=== PATIENT | male | born 1945 | race American Indian/Alaskan Native ===

== ENCOUNTER 2019-11-02 18:18 | Inpatient (IN) | payer MEDICARE ==
[2019-11-02] MEDS ORDERED: MORPHINE 2 MG/1 ML INJ IV PRN (23:19)
[2019-11-02] MEDS ORDERED: ACETAMINOPHEN 325 MG TAB PO PRN (23:19)
[2019-11-02] MEDS ORDERED: ONDANSETRON 4 MG/2 ML INJ IV PRN (23:19)
[2019-11-02] MEDS ORDERED: MAGNESIUM HYDROXIDE (MOM) ORAL LIQD UDC PO PRN (23:19)
--- NOTE | 2019-11-02 23:40 | History and Physical Report ---
History of Present Illness Date of examination: 11/02/19 Date of admission: 11/02/19 23:15 Chief complaint: Shortness of breath for 3 months History of present illness: Patient is a 74-year-old -[place] male with known history of coronary artery disease, chronic kidney disease, hypertension, hyperlipidemia and hypothyroidism. He was transferred from [facility] to this facility for further care. He had presented at [facility] with history of shortness of breath and paroxysmal nocturnal dyspnea for about 3 months. His work-up at [facility] reveals that he was in CHF.. He was subsequently diuresed and but during the course of the diuresis his creatinine continue to increase and therefore Lasix was discontinued. Was also found to have some urinary retention and has been having nocturia was subsequently placed on a Granados catheter. Patient also has known history of cardiac arrhythmia with paroxysmal atrial fibrillation and is subsequently on anticoagulation with Eliquis. He was being managed at [facility] for CHF exacerbation, acute kidney injury, urinary retention. Past History Past Medical History: CAD, hypertension, hyperlipidemia, PVD, renal failure, other (Benign prostatic hypertrophy) Past Surgical History: appendectomy, total hip replacement (In 2003), total knee replacement (In 2003) Social history: smoking (Uses smokeless tobacco) Family history: CAD Medications and Allergies Allergies Allergy/AdvReac Type Severity Reaction Status Date / Time No Known Allergies Allergy Verified 11/02/19 19:03 Home Medications Medication Instructions Recorded Confirmed Last Taken Type Allopurinol [Zyloprim] 200 mg PO DAILY 11/02/19 11/03/19 11/02/19 History amLODIPine 10 mg PO DAILY 11/02/19 11/03/19 11/02/19 History Apixaban [Eliquis] 2.5 mg PO BID 11/03/19 11/03/19 11/02/19 History AtorvaSTATin 80 mg PO DAILY 11/03/19 11/03/19 11/02/19 History Cholecalciferol (Vitamin D3) 1,000 units PO DAILY 11/03/19 11/03/19 11/02/19 History Doxazosin [Cardura] 6 mg PO DAILY 11/03/19 11/03/19 10/31/19 History Ferrous Sulfate 325 mg PO BID 11/03/19 11/03/19 11/02/19 History Levothyroxine [Synthroid] 50 mcg PO DAILY 11/03/19 11/03/19 11/02/19 History Lisinopril [Zestril TAB] 40 mg PO DAILY 11/03/19 11/03/19 08/29/19 History Tolterodine (Nf) [Detrol LA] 4 mg PO DAILY 11/03/19 11/03/19 Unknown History carvediloL [Coreg] 25 mg PO BID 11/03/19 11/03/19 11/02/19 History Active Meds: Active Medications Acetaminophen (Tylenol) 650 mg PO Q6H PRN PRN Reason: Pain MILD(1-3)/Fever >100.5/HOBBS Magnesium Hydroxide (Milk Of Magnesia) 30 ml PO Q4H PRN PRN Reason: Constipation Morphine Sulfate (Morphine) 2 mg IV Q4H PRN PRN Reason: Pain, Moderate (4-6) Ondansetron HCl (Zofran) 4 mg IV Q8H PRN PRN Reason: Nausea And Vomiting Sodium Chloride (Sodium Chloride Flush Syringe 10 Ml) 10 ml IV BID [facility]IA ELENA Sodium Chloride (Sodium Chloride Flush Syringe 10 Ml) 10 ml IV PRN PRN PRN Reason: LINE FLUSH Review of Systems Respiratory: shortness of breath Genitourinary Male: nocturia Exam - Constitutional General appearance: Present: no acute distress, well-nourished - EENT Eyes: Present: PERRL, EOM intact ENT: hearing intact, clear oral mucosa, dentition normal - Neck Neck: Present: supple, normal ROM - Respiratory Respiratory effort: normal Respiratory: bilateral: CTA - Cardiovascular Rhythm: regular Heart Sounds: Present: S1 & S2, systolic murmur (Soft systolic murmur) - Extremities Extremities: no ischemia, pulses intact, pulses symmetrical, No edema Peripheral Pulses: within normal limits - Abdominal General gastrointestinal: Present: soft, non-tender, non-distended Male genitourinary: Present: normal (Granados catheter in place) - Integumentary Integumentary: Present: clear, warm, dry - Musculoskeletal Musculoskeletal: strength equal bilaterally - Psychiatric Psychiatric: appropriate mood/affect, intact judgment & insight - Neurologic Neurologic: CNII-XII intact, moves all extremities Results - Labs CBC & Chem 7: 11/03/19 04:45 11/03/19 04:45 Assessment and Plan - Patient Problems (1) CHF (congestive heart failure) Current Visit: Yes Status: Acute Plan to address problem: Patient has been diuresed. We will request recent echocardiogram report. We will schedule for cardiology follow-up (2) Urinary retention Current Visit: Yes Status: Acute Plan to address problem: Patient has been placed on a Granados catheter will monitor input and output. (3) CAD (coronary artery disease) Current Visit: Yes Status: Acute Plan to address problem: Stable (4) CKD (chronic kidney disease) Current Visit: Yes Status: Acute Plan to address problem: Requests nephrology follow-up. (5) HTN (hypertension) Current Visit: Yes Status: Acute Plan to address problem: Blood pressure stable and will continue routine home medications. (6) Full code status Current Visit: Yes Status: Acute
[2019-11-03 05:05] LABS: Hematocrit 29.6 % (35.5-45.6); Hemoglobin 9.5 gm/dl (11.8-15.2); Mean Corpuscular HGB Conc 32 % (32-34); Mean Corpuscular Volume 91 fl (84-94); Platelet Count 223 K/mm3 (140-440); Red Blood Count 3.25 M/mm3 (3.65-5.03); Red Cell Distribution Width 17.8 % (13.2-15.2)
[2019-11-03 05:14] LABS: INR 1.19 (0.87-1.13); Partial Thromboplastin Time 26.8 Sec. (24.2-36.6)
[2019-11-03 05:25] LABS: Calcium 8.5 mg/dL (8.4-10.2)
[2019-11-03] MEDS ORDERED: SODIUM POLYSTYRENE 15 GM/60 ML ORAL LIQD PO ONE ×2 (06:27→16:30)
[2019-11-03 06:30] LABS: Basophils % (Manual) 0 % (0.0-1.8); Total Cells Counted 100
[2019-11-03 06:31] LABS: Anisocytosis 1+; Platelet Estimate Consistent w Auto
[2019-11-03] MEDS: LEVOTHYROXINE 50 MCG TAB PO SCH (08:00)
--- NOTE | 2019-11-03 09:24 | Consultation ---
History of Present Illness Consult date: 11/03/19 Requesting physician: BASIA STATON History of present illness: This is a 74-year old male with multiple medical problems who transferred from [facility] for further management acute hypoxic respiratory failure secondary to CHF exacerbation, EF 30% by echo 10/24/19. Patient is resting in bed and reports his breathing is better. He denies chest pain. There is no lower extremity edema. He was treated with supplemental oxygen, diuretics and admitted to [facility] ICU at [place]. he has been admitted to [facility] ICU and I have been consulted fro critical care management Patient was seen and examined. Vitals, labs, medications, chart reviewed.. Review of records shows a cardiac history of paroxysmal atrial fibrillation, on low dose Eliquis due to renal failure. He has a history of mitral valve repair and tricuspid valve repair in 2013. There is no report of coronary bypass at the time of his surgery. Patient also has a history of sick sinus syndrome and has a pacemaker implant. A recent interrogation reports the pacemaker battery is nearing end of life. REVIEW OF SYSTEMS General appearance: no acute distress HEENT: Positive: PERRL Neck: Positive: trachea midline Cardiac: Positive: Reg Rate and Rhythm Lungs: Positive: Decreased Breath Sounds Neuro: Positive: Grossly Intact Extremities: Absent: edema Past History Past Medical History: CAD, hypertension, hyperlipidemia, PVD, renal failure, other (Benign prostatic hypertrophy) Past Surgical History: appendectomy, total hip replacement (In 2003), total knee replacement (In 2003) Social history: smoking (Uses smokeless tobacco) Family history: CAD Medications and Allergies Allergies Allergy/AdvReac Type Severity Reaction Status Date / Time No Known Allergies Allergy Verified 11/02/19 19:03 Home Medications Medication Instructions Recorded Confirmed Last Taken Type allopurinoL [Zyloprim] 200 mg PO DAILY 11/02/19 11/03/19 11/02/19 History amLODIPine 10 mg PO DAILY 11/02/19 11/03/19 11/02/19 History Apixaban [Eliquis] 2.5 mg PO BID 11/03/19 11/03/19 11/02/19 History AtorvaSTATin 80 mg PO DAILY 11/03/19 11/03/19 11/02/19 History Cholecalciferol (Vitamin D3) 1,000 units PO DAILY 11/03/19 11/03/19 11/02/19 History Doxazosin [Cardura] 6 mg PO DAILY 11/03/19 11/03/19 10/31/19 History Ferrous Sulfate 325 mg PO BID 11/03/19 11/03/19 11/02/19 History Levothyroxine [Synthroid] 50 mcg PO DAILY 11/03/19 11/03/19 11/02/19 History Tolterodine (Nf) [Detrol LA] 4 mg PO DAILY 11/03/19 11/03/19 Unknown History carvediloL [Coreg] 25 mg PO BID 11/03/19 11/03/19 11/02/19 History Active Meds: Active Medications Acetaminophen (Tylenol) 650 mg PO Q6H PRN PRN Reason: Pain MILD(1-3)/Fever >100.5/HOBBS Amlodipine Besylate (Amlodipine) 10 mg PO DAILY [facility] Apixaban (Eliquis) 2.5 mg PO BID [facility]; Protocol Carvedilol (Coreg) 25 mg PO BID [facility] Doxazosin Mesylate (Cardura) 6 mg PO DAILY [facility] Levothyroxine Sodium (Synthroid) 50 mcg PO DAILY@0600 [facility] Magnesium Hydroxide (Milk Of Magnesia) 30 ml PO Q4H PRN PRN Reason: Constipation Morphine Sulfate (Morphine) 2 mg IV Q4H PRN PRN Reason: Pain, Moderate (4-6) Ondansetron HCl (Zofran) 4 mg IV Q8H PRN PRN Reason: Nausea And Vomiting Sodium Chloride (Sodium Chloride Flush Syringe 10 Ml) 10 ml IV BID [facility] Sodium Chloride (Sodium Chloride Flush Syringe 10 Ml) 10 ml IV PRN PRN PRN Reason: LINE FLUSH Physical Examination Vital signs: Vital Signs Resp 22 11/02/19 22:30 Constitutional: no acute distress, other (elderly looking AAF, normocephalic with mildly increased resp effort at rest) Eyes: non-icteric ENT: oropharynx moist Neck: supple, no lymphadenopathy, no JVD Effort: mildly labored Ascultation: Bilateral: rhonchi (scant) Percussion: Bilateral: not dull Cardiovascular: regular rate and rhythm Gastrointestinal: normoactive bowel sounds, soft, non-tender, non-distended Integumentary: normal Extremities: no cyanosis, no edema, pulses normal, no ischemia or petechiae Neurologic: normal mental status, non-focal exam (grossly), pupils equal and round, CN II-XII normal Psychiatric: mood appropriate, affect normal Results - Laboratory Findings CBC and BMP: 11/05/19 05:14 11/07/19 05:56 PT/INR, D-dimer PT 15.0 Sec. (12.2-14.9) H 11/03/19 04:45 INR 1.19 (0.87-1.13) H 11/03/19 04:45 Abnormal lab findings: Abnormal Labs 11/03/19 11/03/19 11/03/19 04:45 04:45 04:45 WBC 4.4 L RBC 3.25 L Hgb 9.5 L Hct 29.6 L RDW 17.8 H Monocytes % (Manual) 10.0 H Eosinophils % (Manual) 5.0 H Lymphocytes # (Manual) 0.7 L PT 15.0 H INR 1.19 H Potassium 5.5 H Carbon Dioxide 21 L BUN 63 H Creatinine 3.4 H - Diagnostic Findings Chest x-ray: image reviewed Assessment and Plan Acute Hypoxic Respiratory Failure Hyperkalemia LIANA-probably 2/2 vasomotor nephropathy, overdiuresis, on background of BPH Acute CHF exacerbation (EF 30%) CAD CKD HTN Anemia - wean supplemental oxygen for O2 sat's > 90% -prn BIPAP - continue bronchodilators prn -Increase activity -Avoid nephrotoxins, adjust all medications for GFR/CrCL - continue anticoagulation for A-fib -Medical management of hyperkalemia - PT/OT as tolerated - GI & VTE prophylaxis - Flu & pneumovax per protocol - continue other care per attending / other consultants -Stable for transfer to telemetry floor
[2019-11-03] MEDS ORDERED: NON-FORMULARY EACH (Amlodipine 10 MG) PO SCH (10:00)
[2019-11-03] MEDS: APIXABAN 5 MG TAB PO SCH ×2 (10:38→22:14)
[2019-11-03] MEDS: carvediloL 25 MG TAB PO SCH ×2 (10:39→22:12)
[2019-11-03] MEDS: amLODIPine 10 MG TAB PO SCH (10:41)
[2019-11-03] MEDS: DOXAZOSIN 4 MG TAB PO SCH (10:41)
--- NOTE | 2019-11-03 11:10 | Progress Note ---
Assessment and Plan / Hyperkalemia - 6.3 today will give kayexalate, insulin/d50 - nephrology consulted / CHF (congestive heart failure)rEF 30% appears compensated now, consulted cardiology - will follow recommendation / Urinary retention Patient has been placed on a Granados catheter will monitor input and output. / CAD (coronary artery disease) Stable, cont medical mx /CKD (chronic kidney disease) monitor renal function, consult nephrology / HTN (hypertension) Blood pressure stable and will continue routine home medications. will hold ACEI for now /Leukopenia, cont to monitor /Anemia of CD, monitor h/h /Dvt px, heparin Brief History: This is a 74-year old male with h/o history of paroxysmal atrial fibrillation, on low dose Eliquis due to renal failure, history of mitral valve repair and tricuspid valve repair in 2013, sick sinus syndrome and has a pacemaker implant who transferred from [facility] for further management of CHF exacerbation, EF 30% by echo 10/24/19. Subjective Date of service: 11/03/19 Interval history: Patient seen and examined denies chest pain, breathing improved K level noted elevated transfer from ICU to tele Objective - Constitutional Vitals: Vital Signs - 12hr 11/02/19 11/02/19 11/02/19 23:20 23:30 23:33 Temperature Pulse Rate 68 70 Pulse Rate [ 70 From Monitor] Respiratory 11 L 20 20 Rate Blood Pressure 123/68 120/61 O2 Sat by Pulse 100 99 100 Oximetry 11/02/19 11/02/19 11/03/19 23:40 23:50 00:00 Temperature Pulse Rate 70 70 70 Pulse Rate [ From Monitor] Respiratory 21 22 24 Rate Blood Pressure 120/61 117/66 119/70 O2 Sat by Pulse 100 99 100 Oximetry 11/03/19 11/03/19 11/03/19 00:10 00:20 00:30 Temperature Pulse Rate 70 70 66 Pulse Rate [ From Monitor] Respiratory 21 21 20 Rate Blood Pressure 119/70 121/80 116/86 O2 Sat by Pulse 99 98 98 Oximetry 11/03/19 11/03/19 11/03/19 00:31 00:40 00:50 Temperature 97.7 F Pulse Rate 70 70 Pulse Rate [ From Monitor] Respiratory 17 18 Rate Blood Pressure 116/86 115/85 O2 Sat by Pulse 100 99 Oximetry 11/03/19 11/03/1919 01:00 01:10 01:20 Temperature Pulse Rate 70 70 70 Pulse Rate [ From Monitor] Respiratory 18 18 12 Rate Blood Pressure 126/71 126/71 121/69 O2 Sat by Pulse 100 100 100 Oximetry 11/03/19 11/03/19 11/03/19 01:22 01:30 01:33 Temperature Pulse Rate 69 70 Pulse Rate [ 70 From Monitor] Respiratory 17 16 20 Rate Blood Pressure 121/69 130/71 O2 Sat by Pulse 100 100 100 Oximetry 11/03/19 11/03/19 11/03/19 01:40 01:50 02:00 Temperature Pulse Rate 70 70 70 Pulse Rate [ From Monitor] Respiratory 17 18 16 Rate Blood Pressure 130/71 126/70 140/74 O2 Sat by Pulse 100 100 100 Oximetry 11/03/19 11/03/19 11/03/19 02:10 02:20 02:30 Temperature Pulse Rate 70 70 70 Pulse Rate [ From Monitor] Respiratory 17 13 17 Rate Blood Pressure 140/74 141/79 135/74 O2 Sat by Pulse 100 100 100 Oximetry 11/03/19 11/03/19 11/03/19 02:40 02:50 03:00 Temperature Pulse Rate 70 70 70 Pulse Rate [ From Monitor] Respiratory 17 18 18 Rate Blood Pressure 141/79 132/76 132/76 O2 Sat by Pulse 100 100 100 Oximetry 11/03/19 11/03/19 11/03/19 03:10 03:20 03:30 Temperature Pulse Rate 70 70 70 Pulse Rate [ From Monitor] Respiratory 20 19 16 Rate Blood Pressure 132/76 140/75 128/71 O2 Sat by Pulse 100 100 100 Oximetry 11/03/19 11/03/19 11/03/19 03:33 03:40 03:50 Temperature Pulse Rate 70 70 Pulse Rate [ 70 From Monitor] Respiratory 20 15 22 Rate Blood Pressure 140/75 136/78 O2 Sat by Pulse 100 100 100 Oximetry 11/03/19 11/03/19 11/03/19 04:00 04:10 04:20 Temperature Pulse Rate 70 70 70 Pulse Rate [ From Monitor] Respiratory 19 16 16 Rate Blood Pressure 139/75 136/78 126/72 O2 Sat by Pulse 100 100 100 Oximetry 11/03/19 11/03/19 11/03/19 04:30 04:40 04:48 Temperature Pulse Rate 70 70 70 Pulse Rate [ From Monitor] Respiratory 16 16 14 Rate Blood Pressure 119/67 119/67 134/84 O2 Sat by Pulse 100 100 100 Oximetry 11/03/19 11/03/19 11/03/19 04:50 05:00 05:10 Temperature Pulse Rate 70 70 70 Pulse Rate [ From Monitor] Respiratory 13 15 16 Rate Blood Pressure 134/84 135/74 134/84 O2 Sat by Pulse 100 100 100 Oximetry 11/03/19 11/03/19 11/03/19 05:20 05:30 05:33 Temperature Pulse Rate 70 70 Pulse Rate [ 70 From Monitor] Respiratory 17 19 20 Rate Blood Pressure 133/78 146/80 O2 Sat by Pulse 100 100 100 Oximetry 11/03/19 11/03/19 11/03/19 05:40 05:50 06:00 Temperature Pulse Rate 70 70 70 Pulse Rate [ From Monitor] Respiratory 14 16 15 Rate Blood Pressure 146/80 148/82 141/77 O2 Sat by Pulse 100 100 100 Oximetry 11/03/19 11/03/19 11/03/19 06:10 06:20 06:30 Temperature Pulse Rate 70 70 70 Pulse Rate [ From Monitor] Respiratory 16 15 15 Rate Blood Pressure 146/80 130/69 129/70 O2 Sat by Pulse 100 100 100 Oximetry 11/03/19 11/03/19 11/03/19 06:40 06:50 07:00 Temperature Pulse Rate 70 70 70 Pulse Rate [ 70 From Monitor] Respiratory 15 14 15 Rate Blood Pressure 129/70 128/71 127/69 O2 Sat by Pulse 100 100 100 Oximetry 11/03/19 11/03/19 11/03/19 07:10 07:20 07:30 Temperature Pulse Rate 70 70 70 Pulse Rate [ From Monitor] Respiratory 16 16 16 Rate Blood Pressure 127/69 148/82 146/76 O2 Sat by Pulse 100 100 100 Oximetry 11/03/19 11/03/19 11/03/19 07:40 08:00 08:30 Temperature 97.9 F Pulse Rate 70 70 70 Pulse Rate [ From Monitor] Respiratory 18 16 14 Rate Blood Pressure 146/76 144/94 129/77 O2 Sat by Pulse 100 100 100 Oximetry 11/03/19 11/03/19 11/03/19 09:00 09:30 10:00 Temperature Pulse Rate 70 70 70 Pulse Rate [ From Monitor] Respiratory 15 17 21 Rate Blood Pressure 136/74 131/70 126/71 O2 Sat by Pulse 100 100 100 Oximetry 11/03/19 11/03/19 10:39 10:41 Temperature Pulse Rate 70 70 Pulse Rate [ From Monitor] Respiratory Rate Blood Pressure 137/80 137/80 O2 Sat by Pulse Oximetry General appearance: Present: no acute distress, well-nourished - EENT Eyes: PERRL, EOM intact ENT: hearing intact, clear oral mucosa Ears: bilateral: normal - Neck Neck: supple, normal ROM - Respiratory Respiratory effort: normal Respiratory: bilateral: CTA - Cardiovascular Rhythm: regular Heart Sounds: Present: S1 & S2. Absent: gallop, rub Extremities: pulses intact, No edema, normal color, Full ROM - Gastrointestinal General gastrointestinal: Present: soft, non-tender, non-distended, normal bowel sounds - Integumentary Integumentary: clear, warm, dry - Musculoskeletal Musculoskeletal: 1, strength equal bilaterally - Neurologic Neurologic: moves all extremities - Psychiatric Psychiatric: memory intact, appropriate mood/affect, intact judgment & insight - Labs CBC & Chem 7: 11/03/19 04:45 11/04/19 16:09 Labs: Abnormal lab results 11/03/19 11/03/19 11/03/19 Range/Units 04:45 04:45 04:45 WBC 4.4 L (4.5-11.0) K/mm3 RBC 3.25 L (3.65-5.03) M/mm3 Hgb 9.5 L (11.8-15.2) gm/dl Hct 29.6 L (35.5-45.6) % RDW 17.8 H (13.2-15.2) % Monocytes % (Manual) 10.0 H (0.0-7.3) % Eosinophils % (Manual) 5.0 H (0.0-4.3) % Lymphocytes # (Manual) 0.7 L (1.2-5.4) K/mm3 PT 15.0 H (12.2-14.9) Sec. INR 1.19 H (0.87-1.13) Potassium 5.5 H (3.6-5.0) mmol/L Carbon Dioxide 21 L (22-30) mmol/L BUN 63 H (9-20) mg/dL Creatinine 3.4 H (0.8-1.5) mg/dL
--- NOTE | 2019-11-03 12:09 | Consultation ---
<MAYA JUÁREZ - Last Filed: 11/03/19 12:21> History of Present Illness Consult date: 11/03/19 Consult reason: congestive heart failure History of present illness: This is a 74-year old male with multiple medical problems who transferred from [facility] for further management of CHF exacerbation, EF 30% by echo 10/24/19. Patient is resting in bed and reports his breathing is better. He denies chest pain. There is no lower extremity edema. There is no ECG available but telemetry strips shows stable sinus rhythm, Review of records shows a cardiac history of paroxysmal atrial fibrillation, on low dose Eliquis due to renal failure. He has a history of mitral valve repair and tricuspid valve repair in 2013. There is no report of coronary bypass at the time of his surgery. Patient also has a history of sick sinus syndrome and has a pacemaker implant. A recent interrogation reports the pacemaker battery is nearing end of life. Past History Past Medical History: CAD, hypertension, hyperlipidemia, PVD, renal failure, other (Benign prostatic hypertrophy) Past Surgical History: appendectomy, total hip replacement (In 2003), total knee replacement (In 2003) Social history: smoking (Uses smokeless tobacco) Family history: CAD Medications and Allergies Allergies Allergy/AdvReac Type Severity Reaction Status Date / Time No Known Allergies Allergy Verified 11/02/19 19:03 Home Medications Medication Instructions Recorded Confirmed Last Taken Type Allopurinol [Zyloprim] 200 mg PO DAILY 11/02/19 11/03/19 11/02/19 History amLODIPine 10 mg PO DAILY 11/02/19 11/03/19 11/02/19 History Apixaban [Eliquis] 2.5 mg PO BID 11/03/19 11/03/19 11/02/19 History AtorvaSTATin 80 mg PO DAILY 11/03/19 11/03/19 11/02/19 History Cholecalciferol (Vitamin D3) 1,000 units PO DAILY 11/03/19 11/03/19 11/02/19 History Doxazosin [Cardura] 6 mg PO DAILY 11/03/19 11/03/19 10/31/19 History Ferrous Sulfate 325 mg PO BID 11/03/19 11/03/19 11/02/19 History Levothyroxine [Synthroid] 50 mcg PO DAILY 11/03/19 11/03/19 11/02/19 History Tolterodine (Nf) [Detrol LA] 4 mg PO DAILY 11/03/19 11/03/19 Unknown History carvediloL [Coreg] 25 mg PO BID 11/03/19 11/03/19 11/02/19 History Active Meds: Active Medications Acetaminophen (Tylenol) 650 mg PO Q6H PRN PRN Reason: Pain MILD(1-3)/Fever >100.5/HOBBS Amlodipine Besylate (Amlodipine) 10 mg PO DAILY [facility] Last Admin: 11/03/19 10:41 Dose: 10 mg Documented by: Apixaban (Eliquis) 2.5 mg PO BID [facility]; Protocol Last Admin: 11/03/19 10:38 Dose: 2.5 mg Documented by: Carvedilol (Coreg) 25 mg PO BID [facility] Last Admin: 11/03/19 10:39 Dose: 25 mg Documented by: Doxazosin Mesylate (Cardura) 6 mg PO DAILY [facility] Last Admin: 11/03/19 10:41 Dose: 2 mg Documented by: Levothyroxine Sodium (Synthroid) 50 mcg PO DAILY@0600 [facility] Last Admin: 11/03/19 08:00 Dose: 50 mcg Documented by: Magnesium Hydroxide (Milk Of Magnesia) 30 ml PO Q4H PRN PRN Reason: Constipation Morphine Sulfate (Morphine) 2 mg IV Q4H PRN PRN Reason: Pain, Moderate (4-6) Ondansetron HCl (Zofran) 4 mg IV Q8H PRN PRN Reason: Nausea And Vomiting Sodium Chloride (Sodium Chloride Flush Syringe 10 Ml) 10 ml IV BID [facility] Sodium Chloride (Sodium Chloride Flush Syringe 10 Ml) 10 ml IV PRN PRN PRN Reason: LINE FLUSH Physical Examination Vital Signs Resp 22 11/02/19 22:30 General appearance: no acute distress HEENT: Positive: PERRL Neck: Positive: trachea midline Cardiac: Positive: Reg Rate and Rhythm Lungs: Positive: Decreased Breath Sounds Neuro: Positive: Grossly Intact Extremities: Absent: edema Results 11/03/19 04:45 11/03/19 04:45 Coagulation 11/03/19 Range/Units 04:45 PT 15.0 H (12.2-14.9) Sec. INR 1.19 H (0.87-1.13) APTT 26.8 (24.2-36.6) Sec. CBC 11/03/19 Range/Units 04:45 WBC 4.4 L (4.5-11.0) K/mm3 RBC 3.25 L (3.65-5.03) M/mm3 Hgb 9.5 L (11.8-15.2) gm/dl Hct 29.6 L (35.5-45.6) % Plt Count 223 (140-440) K/mm3 Comprehensive Metabolic Panel 11/03/19 Range/Units 04:45 Sodium 139 (137-145) mmol/L Potassium 5.5 H (3.6-5.0) mmol/L Chloride 106.7 (98-107) mmol/L Carbon Dioxide 21 L (22-30) mmol/L BUN 63 H (9-20) mg/dL Creatinine 3.4 H (0.8-1.5) mg/dL Glucose 93 (75-100) mg/dL Calcium 8.5 (8.4-10.2) mg/dL Assessment and Plan Acute CHF exacerbation, systolic EF 30% by recent echo at [place] Hx of MV and TV repair in 2013 no report of coronary bypass at the time of surgery Hx of SSS s/p PPM repair recent interrogation reports battery is nearing end of life Hx of paroxysmal Afib on low dose eliquis for oral anticoagulation on beta blockers for suppression Renal failure Hx of Thyroidectomy Hypertension Recommendations: Obtain 12 lead ECG. Continue medical therapy for systolic heart failure as tolerated. Diuretics as per management of nephrology due to renal disease. <SYLWIA BRAND - Last Filed: 11/10/19 10:06> Physical Examination Vital Signs Resp 22 11/02/19 22:30 Results 11/05/19 05:14 11/07/19 05:56 Assessment and Plan I have seen and evaluated the patient myself, and agree with the assessment and plan.
--- NOTE | 2019-11-03 14:30 | Consultation ---
History of Present Illness - Reason for Consult Consult date: 11/03/19 acute renal failure, hyperkalemia - History of Present Illness the patient is a 74 YO AAM with known history of HTN, HLD, CAD, CKD, Diastolic CHF, BPH, PVD, hypothyroidism and s/p MV repair who was transferred from [facility] to this facility for further care. He had presented to [facility] with Acute decompensated CHF and A.fib. He was also found to have urinary retention and was subsequently Durham catheter was placed. Currently admitted at this facility for treatment of CHF exacerbation, Acute kidney injury and urinary retention. Patient is a very poor historian and the information was mostly obtained from the chart. Nephrology was consulted for evaluation and treatment of LIANA and hyperkalemia. Date Creatinine 10/04/2008 1.9 06/23/2012 2.3 12/08/2012 2.5 10/31/2019 3.8 11/01/2019 4.1 11/02/2019 3.8 Past History Past Medical History: atrial fib, CAD, heart failure, hypertension, hyperlipidemia, PVD, renal failure, other (BPH) Past Surgical History: appendectomy, total hip replacement (In 2003), total knee replacement (In 2003) Social history: smoking (Uses smokeless tobacco) Family history: CAD Medications and Allergies Allergies Allergy/AdvReac Type Severity Reaction Status Date / Time No Known Allergies Allergy Verified 11/02/19 19:03 Home Medications Medication Instructions Recorded Confirmed Last Taken Type Allopurinol [Zyloprim] 200 mg PO DAILY 11/02/19 11/03/19 11/02/19 History amLODIPine 10 mg PO DAILY 11/02/19 11/03/19 11/02/19 History Apixaban [Eliquis] 2.5 mg PO BID 11/03/19 11/03/19 11/02/19 History AtorvaSTATin 80 mg PO DAILY 11/03/19 11/03/19 11/02/19 History Cholecalciferol (Vitamin D3) 1,000 units PO DAILY 11/03/19 11/03/19 11/02/19 History Doxazosin [Cardura] 6 mg PO DAILY 11/03/19 11/03/19 10/31/19 History Ferrous Sulfate 325 mg PO BID 11/03/19 11/03/19 11/02/19 History Levothyroxine [Synthroid] 50 mcg PO DAILY 11/03/19 11/03/19 11/02/19 History Lisinopril [Zestril TAB] 40 mg PO DAILY 11/03/19 11/03/19 08/29/19 History Tolterodine (Nf) [Detrol LA] 4 mg PO DAILY 11/03/19 11/03/19 Unknown History carvediloL [Coreg] 25 mg PO BID 11/03/19 11/03/19 11/02/19 History Active Meds: Active Medications Acetaminophen (Tylenol) 650 mg PO Q6H PRN PRN Reason: Pain MILD(1-3)/Fever >100.5/HOBBS Amlodipine Besylate (Amlodipine) 10 mg PO DAILY [facility] Last Admin: 11/03/19 10:41 Dose: 10 mg Documented by: Apixaban (Eliquis) 2.5 mg PO BID [facility]; Protocol Last Admin: 11/03/19 10:38 Dose: 2.5 mg Documented by: Carvedilol (Coreg) 25 mg PO BID [facility] Last Admin: 11/03/19 10:39 Dose: 25 mg Documented by: Doxazosin Mesylate (Cardura) 6 mg PO DAILY [facility] Last Admin: 11/03/19 10:41 Dose: 2 mg Documented by: Levothyroxine Sodium (Synthroid) 50 mcg PO DAILY@0600 [facility] Last Admin: 11/03/19 08:00 Dose: 50 mcg Documented by: Magnesium Hydroxide (Milk Of Magnesia) 30 ml PO Q4H PRN PRN Reason: Constipation Morphine Sulfate (Morphine) 2 mg IV Q4H PRN PRN Reason: Pain, Moderate (4-6) Ondansetron HCl (Zofran) 4 mg IV Q8H PRN PRN Reason: Nausea And Vomiting Sodium Chloride (Sodium Chloride Flush Syringe 10 Ml) 10 ml IV BID [facility] Sodium Chloride (Sodium Chloride Flush Syringe 10 Ml) 10 ml IV PRN PRN PRN Reason: LINE FLUSH Review of Systems ROS unobtainable: due to mental status Exam - Vital Signs Vital signs: Vital Signs Resp 22 11/02/19 22:30 - General Appearance General appearance: well-developed, well-nourished, appears stated age, other (not in distress) EENT: ATNC, PERRL, hearing intact, vision intact Neck: Present: neck supple, trachea midline Respiratory: Clear to Ascultation Heart: normal heart rate, S1S2, no murmurs Gastrointestinal: Present: normoactive bowel sounds, other (: durham catheter). Absent: tenderness, distended Integumentary: no rash, warm and dry Neurologic: no focal deficit, no asterixis, confused, disoriented Musculoskeletal: Present: other (no edema) Results - Lab Results 11/03/19 04:45 11/03/19 04:45 Most recent lab results Calcium 8.5 mg/dL (8.4-10.2) 11/03/19 04:45 Assessment and Plan 1. Acute kidney injury vs CKD stage 4: Likely CKD stage 4 in the setting of ischemic nephropathy. Urine studies and Renal US ordered. Monitor renal function. Renal prognosis is guarded. Avoid nephrotoxic agents. Meds dosage based on GFR. 2. FEN: Metabolic acidosis, monitor. Hyperkalemia, follow K level. Monitor lytes. 3. Acute decompensated CHF. 4. Paroxysmal A.fib. 5. Urinary retention: H/o BPH. Durham catheter. 6. Hypertension: Monitor BP. 7. Normochromic anemia: POA.
[2019-11-03 15:43] LABS: Calcium 8.8 mg/dL (8.4-10.2)
[2019-11-03] MEDS ORDERED: ALBUTEROL 2.5 MG/3 ML NEBU IH ONE (16:30)
[2019-11-03] MEDS ORDERED: DEXTROSE 50% IN WATER (25GM) 50 ML SYRINGE IV ONE (16:30)
[2019-11-03] MEDS ORDERED: INSULIN REGULAR, HUMAN 100 UNITS/1 ML IV ONE (16:30)
--- NOTE | 2019-11-03 20:51 | Ultrasound Report ---
ULTRASOUND RENAL INDICATION: Renal failure.. COMPARISON: No relevant prior imaging study available. FINDINGS: RIGHT KIDNEY: Size: 9.3 cm. Echogenicity: Moderately increased. Cortical thickness: 1.1 cm. Hydronephrosis: None. Cyst or mass: Small 9 x 6 x 9 mm cyst in the upper pole.. Stones: 1.4 cm. LEFT KIDNEY: Size: 9.6 cm. Echogenicity: Moderately increased. Cortical thickness: Normal. Hydronephrosis: None. Cyst or mass: 1.7 x 1.6 x 2 cm cyst in the lower pole with an adjacent smaller cyst seen as well.. S tones: None. Urinary Bladder: Empty with Granados catheter in place.. Free Fluid: None. Additional Findings: None. IMPRESSION 1. Medical renal disease with small renal cysts. No stones or obstruction.. Signer Name: Jason Noriega MD Signed: 11/03/2019 8:47 PM Workstation Name: [id number]
[2019-11-03 20:54] LABS: Calcium 8.9 mg/dL (8.4-10.2)
[2019-11-04 04:26] LABS: Bacteria,Urine 1+ /HPF (Negative); Bilirubin,Urine NEG (Negative); Blood,Urine MOD (Negative); Color,Urine Yellow (Yellow); Urobilinogen,Urine < 2.0 mg/dL (<2.0)
[2019-11-04 05:10] LABS: Creatinine,Urine 122.4 mg/dL (0.1-20.0)
[2019-11-04] MEDS: LEVOTHYROXINE 50 MCG TAB PO SCH (05:55)
[2019-11-04 06:59] LABS: BUN/Creatinine Ratio TNR; Blood Urea Nitrogen TNR mg/dL (9-20); Calcium TNR mg/dL (8.4-10.2)
[2019-11-04 07:00] LABS: Alanine Aminotransferase TNR units/L (7-56); Albumin TNR g/dL (3.9-5); Hemolysis Index TNR
--- NOTE | 2019-11-04 08:13 | Progress Note ---
Assessment and Plan 1. Acute kidney injury vs CKD stage 4: Likely CKD stage 4 in the setting of ischemic nephropathy. Renal US negative for hydronephrosis. Monitor renal function. Renal prognosis is guarded. Avoid nephrotoxic agents. Meds dosage based on GFR. 2. FEN: Metabolic acidosis, monitor. Hyperkalemia, kayexalate ordered. Monitor lytes. 3. Acute decompensated CHF. 4. Paroxysmal A.fib. 5. Urinary retention: H/o BPH. Durham catheter. 6. Hypertension: Monitor BP. 7. Normochromic anemia: POA. Examination: General appearance: well-developed, well-nourished, appears stated age, not in distress HEENT: ATNC, AJIT, hearing intact, vision intact Neck: neck supple, trachea midline Respiratory: Clear to Ascultation Heart: normal heart rate, S1S2, no murmurs Gastrointestinal: normoactive bowel sounds, not tender, not distended Integumentary: no rash, warm and dry Neurologic: no focal deficit, no asterixis, confused, disoriented : durham catheter Ext: no edema Subjective Date of service: 11/04/19 Interval history: Patient was seen and examined at the bedside. Objective - Vital Signs Vital signs: Vital Signs - 12hr 11/03/19 11/03/19 11/03/19 20:22 20:23 22:00 Temperature 97.9 F Pulse Rate 71 70 Pulse Rate [ 70 From Monitor] Pulse Rate [ 71 Left Radial] Pulse Rate [ 71 Right Radial] Respiratory 18 18 Rate Blood Pressure 123/72 O2 Sat by Pulse 99 99 Oximetry 11/03/19 11/03/19 11/03/19 22:08 22:12 23:25 Temperature Pulse Rate 70 70 Pulse Rate [ From Monitor] Pulse Rate [ Left Radial] Pulse Rate [ Right Radial] Respiratory 20 Rate Blood Pressure 123/72 136/83 O2 Sat by Pulse 98 100 Oximetry 11/03/19 11/04/19 11/04/19 23:31 05:31 05:33 Temperature 97.5 F L 97.7 F Pulse Rate 68 Pulse Rate [ From Monitor] Pulse Rate [ Left Radial] Pulse Rate [ Right Radial] Respiratory 20 Rate Blood Pressure 126/76 O2 Sat by Pulse 100 Oximetry 11/04/19 08:05 Temperature 98.2 F Pulse Rate 69 Pulse Rate [ From Monitor] Pulse Rate [ Left Radial] Pulse Rate [ Right Radial] Respiratory 18 Rate Blood Pressure 124/73 O2 Sat by Pulse 100 Oximetry - Lab 11/05/19 05:14 11/05/19 05:14 Most recent lab results Calcium TNR 11/04/19 04:39 Urine Creatinine 122.4 mg/dL (0.1-20.0) H 11/04/19 04:00 Urine Sodium 41 mmol/L 11/04/19 04:00 Medications & Allergies - Medications Allergies/Adverse Reactions: Allergies No Known Allergies Allergy (Verified 11/02/19 19:03) Home Medications: Home Medications Medication Instructions Recorded Confirmed Last Taken Type Allopurinol [Zyloprim] 200 mg PO DAILY 11/02/19 11/03/19 11/02/19 History amLODIPine 10 mg PO DAILY 11/02/19 11/03/19 11/02/19 History Apixaban [Eliquis] 2.5 mg PO BID 11/03/19 11/03/19 11/02/19 History AtorvaSTATin 80 mg PO DAILY 11/03/19 11/03/19 11/02/19 History Cholecalciferol (Vitamin D3) 1,000 units PO DAILY 11/03/19 11/03/19 11/02/19 History Doxazosin [Cardura] 6 mg PO DAILY 11/03/19 11/03/19 10/31/19 History Ferrous Sulfate 325 mg PO BID 11/03/19 11/03/19 11/02/19 History Levothyroxine [Synthroid] 50 mcg PO DAILY 11/03/19 11/03/19 11/02/19 History Lisinopril [Zestril TAB] 40 mg PO DAILY 11/03/19 11/03/19 08/29/19 History Tolterodine (Nf) [Detrol LA] 4 mg PO DAILY 11/03/19 11/03/19 Unknown History carvediloL [Coreg] 25 mg PO BID 11/03/19 11/03/19 11/02/19 History Active Medications: Generic Name Dose Route Start Last Admin Trade Name Freq PRN Reason Stop Dose Admin Acetaminophen 650 mg 11/02/19 23:19 Tylenol PO Q6H PRN Pain MILD(1-3)/Fever >100.5/HOBBS Amlodipine Besylate 10 mg 11/03/19 10:00 11/03/19 10:41 Amlodipine PO 10 mg DAILY [facility] ELENA Administration Apixaban 2.5 mg 11/03/19 10:00 11/03/19 22:14 Eliquis PO 2.5 mg BID MARIA ELENA Administration Protocol Carvedilol 25 mg 11/03/19 10:00 11/03/19 22:12 Coreg PO 25 mg BID MARIA ELENA Administration Doxazosin Mesylate 6 mg 11/03/19 10:00 11/03/19 10:41 Cardura PO 2 mg DAILY MARIA ELENA Administration Levothyroxine Sodium 50 mcg 11/03/19 07:00 11/04/19 05:55 Synthroid PO 50 mcg DAILY@0600 [facility] Administration Magnesium Hydroxide 30 ml 11/02/19 23:19 Milk Of Magnesia PO Q4H PRN Constipation Morphine Sulfate 2 mg 11/02/19 23:19 Morphine IV Q4H PRN Pain, Moderate (4-6) Ondansetron HCl 4 mg 11/02/19 23:19 Zofran IV Q8H PRN Nausea And Vomiting Sodium Chloride 10 ml 11/03/19 10:00 11/03/19 22:13 Sodium Chloride Flush Syringe 10 Ml IV 10 ml BID [facility]IA ELENA Administration Sodium Chloride 10 ml 11/02/19 23:19 Sodium Chloride Flush Syringe 10 Ml IV PRN PRN LINE FLUSH
[2019-11-04 08:32] LABS: Calcium 8.5 mg/dL (8.4-10.2)
[2019-11-04] MEDS: DOXAZOSIN 4 MG TAB PO SCH (09:25)
[2019-11-04] MEDS: amLODIPine 10 MG TAB PO SCH (09:25)
[2019-11-04] MEDS: carvediloL 25 MG TAB PO SCH ×2 (09:26→21:44)
[2019-11-04] MEDS: APIXABAN 5 MG TAB PO SCH ×2 (09:27→21:41)
[2019-11-04] MEDS ORDERED: SODIUM POLYSTYRENE 15 GM/60 ML ORAL LIQD PO SCH (09:51)
[2019-11-04] MEDS ORDERED: NON-FORMULARY EACH (Ferrous Sulfate 325 MG) PO SCH (10:00)
[2019-11-04] MEDS ORDERED: CHOLECALCIFEROL 1000 UNIT PO SCH (10:00)
[2019-11-04] MEDS ORDERED: NON-FORMULARY EACH (Atorvastatin 80 MG) PO SCH (10:00)
[2019-11-04] MEDS: CHOLECALCIFEROL (VIT D3) 1000 UNIT TAB PO SCH (10:29)
[2019-11-04] MEDS: FERROUS SULFATE 325 MG TAB PO SCH ×2 (10:29→21:41)
[2019-11-04] MEDS: allopurinoL 100 MG TAB PO SCH (10:29)
--- NOTE | 2019-11-04 12:15 | Progress Note ---
Assessment and Plan Acute CHF exacerbation, systolic EF 30% by recent echo at [facility] Hx of MV and TV repair in 2013 no report of coronary bypass at the time of surgery Hx of SSS s/p PPM repair recent interrogation reports battery is nearing end of life Hx of paroxysmal Afib on low dose eliquis for oral anticoagulation on beta blockers for suppression Renal failure Hx of Thyroidectomy Hypertension Recommendations: Obtain ischemic cardiac records from [facility]. Continue medical therapy for systolic heart failure and paroxysmal atrial fibrillation as tolerated. Subjective Date of service: 11/04/19 Interval history: Patient is resting in bed comfortably. He reports his breathing better. He denies chest pain. Family member is at the bedside. Objective Vital Signs Temp Pulse Pulse Pulse Pulse Resp BP 11/04/19 12:08 98.3 F 66 18 123/72 11/04/19 10:00 11/04/19 09:26 70 113/61 11/04/19 09:25 70 113/61 11/04/19 09:23 70 113/61 11/04/19 08:05 98.2 F 69 18 124/73 11/04/19 05:33 97.7 F 11/04/19 05:31 68 20 126/76 11/03/19 23:31 97.5 F L 11/03/19 23:25 70 20 136/83 11/03/19 22:12 70 123/72 11/03/19 22:08 11/03/19 22:00 70 70 71 71 18 11/03/19 20:23 97.9 F 11/03/19 20:22 71 18 123/72 11/03/19 16:13 97.6 F 71 18 106/73 11/03/19 13:11 97.6 F 70 18 121/76 Pulse Ox 11/04/19 12:08 99 11/04/19 10:00 100 11/04/19 09:26 11/04/19 09:25 11/04/19 09:23 100 11/04/19 08:05 100 11/04/19 05:33 11/04/19 05:31 100 11/03/19 23:31 11/03/19 23:25 100 11/03/19 22:12 11/03/19 22:08 98 11/03/19 22:00 99 11/03/19 20:23 11/03/19 20:22 99 11/03/19 16:13 100 11/03/19 13:11 100 - Physical Examination General: No Apparent Distress HEENT: Positive: PERRL Neck: Positive: trachea midline Cardiac: Positive: Other (paced) Lungs: Positive: Decreased Breath Sounds Neuro: Positive: Grossly Intact - Labs and Meds Cardiac Enzymes 11/04/19 Range/Units 04:39 AST TNR Comprehensive Metabolic Panel 11/03/19 11/03/19 11/04/19 Range/Units 14:55 20:07 04:39 Sodium 138 140 TNR (137-145) mmol/L Potassium 6.3 H* 5.3 H TNR (3.6-5.0) mmol/L Chloride 104.1 111.0 H TNR (98-107) mmol/L Carbon Dioxide 23 19 L TNR (22-30) mmol/L BUN 62 H 59 H TNR (9-20) mg/dL Creatinine 3.1 H 3.0 H TNR (0.8-1.5) mg/dL Glucose 117 H 40 L TNR (75-100) mg/dL Calcium 8.8 8.9 TNR (8.4-10.2) mg/dL AST TNR ALT TNR Alkaline Phosphatase TNR Total Protein TNR Albumin TNR 11/04/19 Range/Units 07:13 Sodium 135 L (137-145) mmol/L Potassium 5.5 H (3.6-5.0) mmol/L Chloride 103.1 (98-107) mmol/L Carbon Dioxide 20 L (22-30) mmol/L BUN 64 H (9-20) mg/dL Creatinine 2.6 H (0.8-1.5) mg/dL Glucose 73 L (75-100) mg/dL Calcium 8.5 (8.4-10.2) mg/dL AST ALT Alkaline Phosphatase Total Protein Albumin
--- NOTE | 2019-11-04 13:41 | Progress Note ---
Assessment and Plan Acute Hypoxemic Respiratory Failure Hyperkalemia Acute CHF exacerbation (EF 30%) Atrial fib Urinary retention CAD CKD HTN Anemia - continue supplemental oxygen as needed to keep O2 sat's > 90% - continue bronchodilators with pulmonary hygiene per RT - continue anticoagulation for A-fib - PT/OT as tolerated - mobility protocols for pressure ulcer prophylaxis - GI & VTE prophylaxis - Flu & pneumovax addressed per protocol - continue other care per attending / other consultants ... re-evaluate in am & prn Subjective Date of service: 11/04/19 Principal diagnosis: Acute CHF exacerbation; Acute Hypoxemic Resp Failure Interval history: Patient is seen today for: Acute CHF exacerbation; Acute Hypoxemic Resp Failure Seen and examined at bedside; 24hour events reviewed; nursing and respiratory care staff consulted; no adverse overnight events reported to me; resting peacefully in bed; feels better; remains on supplemental oxygen which is new; denies acute chest pains or palpitations. Objective Vital Signs - 12hr 11/04/19 11/04/19 11/04/19 05:31 05:33 08:05 Temperature 97.7 F 98.2 F Pulse Rate 68 69 Respiratory 20 18 Rate Blood Pressure 126/76 124/73 O2 Sat by Pulse 100 100 Oximetry 11/04/19 11/04/19 11/04/19 09:23 09:25 09:26 Temperature Pulse Rate 70 70 70 Respiratory Rate Blood Pressure 113/61 113/61 113/61 O2 Sat by Pulse 100 Oximetry 11/04/19 11/04/19 10:00 12:08 Temperature 98.3 F Pulse Rate 70 66 Respiratory 18 Rate Blood Pressure 123/72 O2 Sat by Pulse 100 99 Oximetry Constitutional: no acute distress, other (elderly looking AAF, normocephalic with mildly increased resp effort at rest) Eyes: non-icteric ENT: oropharynx moist Neck: supple, no lymphadenopathy, no JVD Effort: mildly labored Ascultation: Bilateral: rhonchi (scant) Percussion: Bilateral: not dull Cardiovascular: regular rate and rhythm Gastrointestinal: normoactive bowel sounds, soft, non-tender, non-distended Integumentary: normal Extremities: no cyanosis, no edema, pulses normal, no ischemia or petechiae Neurologic: normal mental status, non-focal exam (grossly), pupils equal and round, CN II-XII normal Psychiatric: mood appropriate, affect normal CBC and BMP: 11/05/19 05:14 11/07/19 05:56 ABG, PT/INR, D-dimer: PT/INR, D-dimer PT 15.0 Sec. (12.2-14.9) H 11/03/19 04:45 INR 1.19 (0.87-1.13) H 11/03/19 04:45 Abnormal lab findings: Abnormal Labs 11/03/19 11/03/19 11/03/19 04:45 04:45 04:45 WBC 4.4 L RBC 3.25 L Hgb 9.5 L Hct 29.6 L RDW 17.8 H Monocytes % (Manual) 10.0 H Eosinophils % (Manual) 5.0 H Lymphocytes # (Manual) 0.7 L PT 15.0 H INR 1.19 H Sodium Potassium 5.5 H Chloride Carbon Dioxide 21 L BUN 63 H Creatinine 3.4 H Glucose Urine WBC (Auto) Urine Creatinine 11/03/19 11/03/19 11/04/19 14:55 20:07 04:00 WBC RBC Hgb Hct RDW Monocytes % (Manual) Eosinophils % (Manual) Lymphocytes # (Manual) PT INR Sodium Potassium 6.3 H* 5.3 H Chloride 111.0 H Carbon Dioxide 19 L BUN 62 H 59 H Creatinine 3.1 H 3.0 H Glucose 117 H 40 L Urine WBC (Auto) 7.0 H Urine Creatinine 11/04/19 11/04/19 04:00 07:13 WBC RBC Hgb Hct RDW Monocytes % (Manual) Eosinophils % (Manual) Lymphocytes # (Manual) PT INR Sodium 135 L Potassium 5.5 H Chloride Carbon Dioxide 20 L BUN 64 H Creatinine 2.6 H Glucose 73 L Urine WBC (Auto) Urine Creatinine 122.4 H Allied health notes reviewed: nursing
--- NOTE | 2019-11-04 17:29 | Progress Note ---
Assessment and Plan / Hyperkalemia - trended down to 5.9 from 6.3 today will give additional kayexalate, insulin/d50, calcium gluconate, sodium bicarbonate - nephrology consulted / CHF (congestive heart failure)rEF 30% appears compensated now, consulted cardiology - will follow recommendation /Atrial fib, on eliquis, rate controlled / Urinary retention Patient has been placed on a Granados catheter will monitor input and output. / CAD (coronary artery disease) Stable, cont medical mx /CKD (chronic kidney disease) monitor renal function, consult nephrology / HTN (hypertension) Blood pressure stable and will continue routine home medications. will hold ACEI for now /Leukopenia, cont to monitor /Anemia of CD, monitor h/h /Dvt px, heparin Brief History: This is a 74-year old male with h/o history of paroxysmal atrial fibrillation, on low dose Eliquis due to renal failure, history of mitral valve repair and tricuspid valve repair in 2013, sick sinus syndrome and has a pacemaker implant who transferred from [facility] for further management of CHF exacerbation, EF 30% by echo 10/24/19. Physical exam: General appearance: Present: no acute distress, well-nourished - EENT Eyes: PERRL, EOM intact ENT: hearing intact, clear oral mucosa Ears: bilateral: normal - Neck Neck: supple, normal ROM - Respiratory Respiratory effort: normal Respiratory: bilateral: CTA - Cardiovascular Rhythm: regular Heart Sounds: Present: S1 & S2. Absent: gallop, rub Extremities: pulses intact, No edema, normal color, Full ROM - Gastrointestinal General gastrointestinal: Present: soft, non-tender, non-distended, normal bowel sounds - Integumentary Integumentary: clear, warm, dry - Musculoskeletal Musculoskeletal: 1, strength equal bilaterally - Neurologic Neurologic: moves all extremities - Psychiatric Psychiatric: memory intact, appropriate mood/affect, intact judgment & insight Subjective Date of service: 11/04/19 Principal diagnosis: Acute CHF exacerbation; Acute Hypoxemic Resp Failure Interval history: Patient seen and examined denies chest pain, breathing improved K level noted still elevated Objective - Constitutional Vitals: Vital Signs - 12hr 11/04/19 11/04/19 11/04/19 05:31 05:33 08:05 Temperature 97.7 F 98.2 F Pulse Rate 68 69 Pulse Rate [ Apical] Pulse Rate [ Left Dorsalis Pedis] Pulse Rate [ Left Radial] Pulse Rate [ Right Dorsalis Pedis] Pulse Rate [ Right Radial] Respiratory 20 18 Rate Blood Pressure 126/76 124/73 O2 Sat by Pulse 100 100 Oximetry 11/04/19 11/04/19 11/04/19 09:23 09:25 09:26 Temperature Pulse Rate 70 70 70 Pulse Rate [ Apical] Pulse Rate [ Left Dorsalis Pedis] Pulse Rate [ Left Radial] Pulse Rate [ Right Dorsalis Pedis] Pulse Rate [ Right Radial] Respiratory Rate Blood Pressure 113/61 113/61 113/61 O2 Sat by Pulse 100 Oximetry 11/04/19 11/04/19 11/04/19 10:00 12:00 12:08 Temperature 98.3 F Pulse Rate 70 71 66 Pulse Rate [ 70 Apical] Pulse Rate [ 70 Left Dorsalis Pedis] Pulse Rate [ 70 Left Radial] Pulse Rate [ 70 Right Dorsalis Pedis] Pulse Rate [ 70 Right Radial] Respiratory 22 18 Rate Blood Pressure 123/72 O2 Sat by Pulse 98 99 Oximetry 11/04/19 17:09 Temperature 98.0 F Pulse Rate 68 Pulse Rate [ Apical] Pulse Rate [ Left Dorsalis Pedis] Pulse Rate [ Left Radial] Pulse Rate [ Right Dorsalis Pedis] Pulse Rate [ Right Radial] Respiratory 18 Rate Blood Pressure 107/68 O2 Sat by Pulse 99 Oximetry - Labs CBC & Chem 7: 11/05/19 05:14 11/05/19 05:14 Labs: Abnormal lab results 11/03/19 11/04/19 11/04/19 Range/Units 20:07 04:00 04:00 Sodium (137-145) mmol/L Potassium 5.3 H (3.6-5.0) mmol/L Chloride 111.0 H (98-107) mmol/L Carbon Dioxide 19 L (22-30) mmol/L BUN 59 H (9-20) mg/dL Creatinine 3.0 H (0.8-1.5) mg/dL Glucose 40 L (75-100) mg/dL Urine WBC (Auto) 7.0 H (0.0-6.0) /HPF Urine Creatinine 122.4 H (0.1-20.0) mg/dL 11/04/19 11/04/19 Range/Units 07:13 16:09 Sodium 135 L (137-145) mmol/L Potassium 5.5 H 5.7 H (3.6-5.0) mmol/L Chloride (98-107) mmol/L Carbon Dioxide 20 L (22-30) mmol/L BUN 64 H (9-20) mg/dL Creatinine 2.6 H (0.8-1.5) mg/dL Glucose 73 L (75-100) mg/dL Urine WBC (Auto) (0.0-6.0) /HPF Urine Creatinine (0.1-20.0) mg/dL
[2019-11-04] MEDS ORDERED: INSULIN REGULAR, HUMAN 100 UNITS/1 ML IV ONE (18:20)
[2019-11-04] MEDS ORDERED: SODIUM POLYSTYRENE 15 GM/60 ML ORAL LIQD PO ONE (18:20)
[2019-11-04] MEDS ORDERED: DEXTROSE 50% IN WATER (25GM) 50 ML VIAL IV ONE (18:20)
[2019-11-05] MEDS: LEVOTHYROXINE 50 MCG TAB PO SCH (05:31)
[2019-11-05 05:57] LABS: Hematocrit 28.6 % (35.5-45.6); Hemoglobin 9.2 gm/dl (11.8-15.2); Mean Corpuscular HGB Conc 32 % (32-34); Mean Corpuscular Volume 92 fl (84-94); Platelet Count 215 K/mm3 (140-440); Red Blood Count 3.11 M/mm3 (3.65-5.03); Red Cell Distribution Width 17.6 % (13.2-15.2)
[2019-11-05 06:01] LABS: Calcium 8.5 mg/dL (8.4-10.2)
[2019-11-05 06:48] LABS: Basophils % (Manual) 0 % (0.0-1.8); Total Cells Counted 100
[2019-11-05 06:49] LABS: Anisocytosis 1+; Platelet Estimate Consistent w Auto; Poikilocytosis 1+
--- NOTE | 2019-11-05 09:45 | Progress Note ---
Assessment and Plan 1. Acute kidney injury vs CKD stage 4: Likely CKD stage 4 in the setting of ischemic nephropathy. Renal US negative for hydronephrosis. Renal function is mostly stable. Monitor renal function. Renal prognosis is guarded. Avoid nephrotoxic agents. Meds dosage based on GFR. 2. FEN: Metabolic acidosis, monitor. Hyperkalemia, kayexalate ordered. Monitor lytes. 3. Acute decompensated CHF. 4. Paroxysmal A.fib. 5. Urinary retention: H/o BPH. Durham catheter. 6. Hypertension: Monitor BP. 7. Normochromic anemia: POA. Examination: General appearance: well-developed, well-nourished, appears stated age, not in distress HEENT: ATNC, AJIT, hearing intact, vision intact Neck: neck supple, trachea midline Respiratory: Clear to Ascultation Heart: normal heart rate, S1S2, no murmurs Gastrointestinal: normoactive bowel sounds, not tender, not distended Integumentary: no rash, warm and dry Neurologic: no focal deficit, no asterixis, confused, disoriented : durham catheter Ext: no edema Subjective Date of service: 11/05/19 Principal diagnosis: Acute CHF exacerbation; Acute Hypoxemic Resp Failure Interval history: Patient was seen and examined at the bedside. Objective - Vital Signs Vital signs: Vital Signs - 12hr 11/04/19 11/04/19 11/05/19 22:00 23:42 00:54 Temperature Pulse Rate 82 72 Pulse Rate [ 80 From Monitor] Respiratory 20 18 Rate Blood Pressure O2 Sat by Pulse 98 97 98 Oximetry 11/05/19 11/05/19 11/05/19 01:06 01:07 04:55 Temperature 98.6 F Pulse Rate 65 65 Pulse Rate [ From Monitor] Respiratory 18 18 Rate Blood Pressure 108/66 109/67 O2 Sat by Pulse 98 100 Oximetry 11/05/19 04:57 Temperature 98.4 F Pulse Rate Pulse Rate [ From Monitor] Respiratory Rate Blood Pressure O2 Sat by Pulse Oximetry - Lab 11/05/19 05:14 11/06/19 13:59 Most recent lab results Calcium 8.5 mg/dL (8.4-10.2) 11/05/19 05:14 Magnesium 2.20 mg/dL (1.7-2.3) 11/05/19 05:14 Urine Creatinine 122.4 mg/dL (0.1-20.0) H 11/04/19 04:00 Urine Sodium 41 mmol/L 11/04/19 04:00 Medications & Allergies - Medications Allergies/Adverse Reactions: Allergies No Known Allergies Allergy (Verified 11/02/19 19:03) Home Medications: Home Medications Medication Instructions Recorded Confirmed Last Taken Type Allopurinol [Zyloprim] 200 mg PO DAILY 11/02/19 11/03/19 11/02/19 History amLODIPine 10 mg PO DAILY 11/02/19 11/03/19 11/02/19 History Apixaban [Eliquis] 2.5 mg PO BID 11/03/19 11/03/19 11/02/19 History AtorvaSTATin 80 mg PO DAILY 11/03/19 11/03/19 11/02/19 History Cholecalciferol (Vitamin D3) 1,000 units PO DAILY 11/03/19 11/03/19 11/02/19 History Doxazosin [Cardura] 6 mg PO DAILY 11/03/19 11/03/19 10/31/19 History Ferrous Sulfate 325 mg PO BID 11/03/19 11/03/19 11/02/19 History Levothyroxine [Synthroid] 50 mcg PO DAILY 11/03/19 11/03/19 11/02/19 History Lisinopril [Zestril TAB] 40 mg PO DAILY 11/03/19 11/03/19 08/29/19 History Tolterodine (Nf) [Detrol LA] 4 mg PO DAILY 11/03/19 11/03/19 Unknown History carvediloL [Coreg] 25 mg PO BID 11/03/19 11/03/19 11/02/19 History Active Medications: Generic Name Dose Route Start Last Admin Trade Name Freq PRN Reason Stop Dose Admin Acetaminophen 650 mg 11/02/19 23:19 Tylenol PO Q6H PRN Pain MILD(1-3)/Fever >100.5/HOBBS Allopurinol 200 mg 11/04/19 10:00 11/04/19 10:29 Zyloprim PO 200 mg DAILY MARIA ELENA Administration Amlodipine Besylate 10 mg 11/03/19 10:00 11/04/19 09:25 Amlodipine PO 10 mg DAILY MARIA ELENA Administration Apixaban 2.5 mg 11/03/19 10:00 11/04/19 21:41 Eliquis PO 2.5 mg BID MARIA ELENA Administration Protocol Atorvastatin Calcium 80 mg 11/04/19 22:00 11/04/19 21:41 Lipitor PO 80 mg QHS MARIA ELENA Administration Carvedilol 25 mg 11/03/19 10:00 11/04/19 21:44 Coreg PO 25 mg BID MARIA ELENA Administration Cholecalciferol 1,000 unit 11/04/19 11:00 11/04/19 10:29 Vitamin D3 PO 1,000 unit DAILY MARIA ELENA Administration Doxazosin Mesylate 6 mg 11/03/19 10:00 11/04/19 09:25 Cardura PO 6 mg DAILY MARIA ELENA Administration Ferrous Sulfate 325 mg 11/04/19 11:00 11/04/19 21:41 Feosol PO 325 mg BID MARIA ELENA Administration Levothyroxine Sodium 50 mcg 11/03/19 07:00 11/05/19 05:31 Synthroid PO 50 mcg DAILY@0600 [facility] Administration Magnesium Hydroxide 30 ml 11/02/19 23:19 Milk Of Magnesia PO Q4H PRN Constipation Morphine Sulfate 2 mg 11/02/19 23:19 Morphine IV Q4H PRN Pain, Moderate (4-6) Ondansetron HCl 4 mg 11/02/19 23:19 Zofran IV Q8H PRN Nausea And Vomiting Sodium Chloride 10 ml 11/03/19 10:00 11/04/19 21:45 Sodium Chloride Flush Syringe 10 Ml IV 10 ml BID MARIA ELENA Administration Sodium Chloride 10 ml 11/02/19 23:19 Sodium Chloride Flush Syringe 10 Ml IV PRN PRN LINE FLUSH
[2019-11-05] MEDS: FERROUS SULFATE 325 MG TAB PO SCH ×2 (10:43→22:10)
[2019-11-05] MEDS: CHOLECALCIFEROL (VIT D3) 1000 UNIT TAB PO SCH (10:43)
[2019-11-05] MEDS: DOXAZOSIN 4 MG TAB PO SCH (10:43)
[2019-11-05] MEDS: allopurinoL 100 MG TAB PO SCH (10:43)
[2019-11-05] MEDS: APIXABAN 5 MG TAB PO SCH ×2 (10:44→22:11)
[2019-11-05] MEDS: amLODIPine 10 MG TAB PO SCH (10:46)
[2019-11-05] MEDS: carvediloL 25 MG TAB PO SCH ×2 (10:47→22:10)
[2019-11-05] MEDS: SODIUM POLYSTYRENE 15 GM/60 ML ORAL LIQD PO SCH ×2 (11:01→17:43)
--- NOTE | 2019-11-05 11:25 | Progress Note ---
Assessment and Plan Acute CHF exacerbation, systolic EF 30% by recent echo at [place] Hx of Nonischemic cardiomyopathy [facility] 2009: no significant CAD Hx of MV and TV repair in 2013 no report of coronary bypass at the time of surgery Hx of SSS s/p DC PPM ([facility]) recent interrogation reports battery is nearing end of life Hx of paroxysmal Afib on low dose eliquis for oral anticoagulation on beta blockers for suppression Renal failure Hx of Thyroidectomy Hypertension Recommend: Continue medical therapy for systolic heart failure and paroxysmal atrial fibrillation as tolerated. Subjective Date of service: 11/05/19 Principal diagnosis: Acute CHF exacerbation; Acute Hypoxemic Resp Failure Interval history: Patient reports his breathing is better. Objective Vital Signs Temp Pulse Pulse Resp BP Pulse Ox 11/05/19 10:47 74 106/62 11/05/19 10:46 74 106/62 11/05/19 10:43 74 106/62 11/05/19 10:00 78 11/05/19 04:57 98.4 F 11/05/19 04:55 65 18 109/67 100 11/05/19 01:07 98.6 F 11/05/19 01:06 65 18 108/66 98 11/05/19 00:54 72 18 98 11/04/19 23:42 97 11/04/19 22:00 82 80 20 98 11/04/19 21:44 70 114/59 11/04/19 19:41 98.7 F 63 24 114/59 100 11/04/19 17:09 98.0 F 68 18 107/68 99 11/04/19 12:08 98.3 F 66 18 123/72 99 11/04/19 12:00 71 - Physical Examination General: No Apparent Distress HEENT: Positive: PERRL Neck: Positive: trachea midline Neuro: Positive: Grossly Intact Extremities: Absent: edema - Labs and Meds CBC 11/05/19 Range/Units 05:14 WBC 3.9 L (4.5-11.0) K/mm3 RBC 3.11 L (3.65-5.03) M/mm3 Hgb 9.2 L (11.8-15.2) gm/dl Hct 28.6 L (35.5-45.6) % Plt Count 215 (140-440) K/mm3 Lymph # Clinical Writer [place] # Clinical Writer Eos # Clinical Writer Baso # Clinical Writer Comprehensive Metabolic Panel 11/04/19 11/05/19 Range/Units 16:09 05:14 Sodium 138 (137-145) mmol/L Potassium 5.7 H 5.6 H (3.6-5.0) mmol/L Chloride 107.7 H (98-107) mmol/L Carbon Dioxide 21 L (22-30) mmol/L BUN 59 H (9-20) mg/dL Creatinine 3.1 H (0.8-1.5) mg/dL Glucose 91 (75-100) mg/dL Calcium 8.5 (8.4-10.2) mg/dL
--- NOTE | 2019-11-05 16:14 | Progress Note ---
Assessment and Plan / Hyperkalemia - trended down to 5.6 Was upto 6.3 s/p kayexalate, insulin/d50, calcium gluconate, sodium bicarbonate - nephrology consulted will give additional dose of kayexalate / CHF (congestive heart failure)rEF 30% appears compensated now, consulted cardiology - will follow recommendation /Atrial fib, on eliquis, rate controlled / Urinary retention Patient has been placed on a Granados catheter will monitor input and output. / CAD (coronary artery disease) Stable, cont medical mx /CKD (chronic kidney disease) monitor renal function, consult nephrology / HTN (hypertension) Blood pressure stable and will continue routine home medications. will hold ACEI for now /Leukopenia, cont to monitor /Anemia of CD, monitor h/h /Dvt px, heparin Brief History: This is a 74-year old male with h/o history of paroxysmal atrial fibrillation, on low dose Eliquis due to renal failure, history of mitral valve repair and tricuspid valve repair in 2013, sick sinus syndrome and has a pacemaker implant who transferred from [facility] for further management of CHF exacerbation, EF 30% by echo 10/24/19. Physical exam: General appearance: Present: no acute distress, well-nourished - EENT Eyes: PERRL, EOM intact ENT: hearing intact, clear oral mucosa Ears: bilateral: normal - Neck Neck: supple, normal ROM - Respiratory Respiratory effort: normal Respiratory: bilateral: CTA - Cardiovascular Rhythm: regular Heart Sounds: Present: S1 & S2. Absent: gallop, rub Extremities: pulses intact, No edema, normal color, Full ROM - Gastrointestinal General gastrointestinal: Present: soft, non-tender, non-distended, normal bowel sounds - Integumentary Integumentary: clear, warm, dry - Musculoskeletal Musculoskeletal: 1, strength equal bilaterally - Neurologic Neurologic: moves all extremities - Psychiatric Psychiatric: memory intact, appropriate mood/affect, intact judgment & insight Subjective Date of service: 11/05/19 Principal diagnosis: Acute CHF exacerbation; Acute Hypoxemic Resp Failure Interval history: Patient seen and examined denies chest pain, breathing improved K level noted still elevated Objective - Constitutional Vitals: Vital Signs - 12hr 11/05/19 11/05/19 11/05/19 04:55 04:57 10:00 Temperature 98.4 F Pulse Rate 65 78 Respiratory 18 Rate Blood Pressure 109/67 Blood Pressure [Right] O2 Sat by Pulse 100 Oximetry 11/05/19 11/05/19 11/05/19 10:43 10:46 10:47 Temperature Pulse Rate 74 74 74 Respiratory Rate Blood Pressure 106/62 106/62 106/62 Blood Pressure [Right] O2 Sat by Pulse Oximetry 11/05/19 12:09 Temperature 98.2 F Pulse Rate 66 Respiratory 18 Rate Blood Pressure Blood Pressure 120/70 [Right] O2 Sat by Pulse 97 Oximetry - Labs CBC & Chem 7: 11/05/19 05:14 11/06/19 05:14 Labs: Abnormal lab results 11/04/19 11/04/19 11/05/19 Range/Units 16:09 19:02 05:14 WBC (4.5-11.0) K/mm3 RBC (3.65-5.03) M/mm3 Hgb (11.8-15.2) gm/dl Hct (35.5-45.6) % RDW (13.2-15.2) % Monocytes % (Manual) (0.0-7.3) % Lymphocytes # (Manual) (1.2-5.4) K/mm3 Potassium 5.7 H 5.6 H (3.6-5.0) mmol/L Chloride 107.7 H (98-107) mmol/L Carbon Dioxide 21 L (22-30) mmol/L BUN 59 H (9-20) mg/dL Creatinine 3.1 H (0.8-1.5) mg/dL POC Glucose 108 H (70-105) 11/05/19 Range/Units 05:14 WBC 3.9 L (4.5-11.0) K/mm3 RBC 3.11 L (3.65-5.03) M/mm3 Hgb 9.2 L (11.8-15.2) gm/dl Hct 28.6 L (35.5-45.6) % RDW 17.6 H (13.2-15.2) % Monocytes % (Manual) 14.0 H (0.0-7.3) % Lymphocytes # (Manual) 0.9 L (1.2-5.4) K/mm3 Potassium (3.6-5.0) mmol/L Chloride (98-107) mmol/L Carbon Dioxide (22-30) mmol/L BUN (9-20) mg/dL Creatinine (0.8-1.5) mg/dL POC Glucose (70-105)
[2019-11-06] MEDS: LEVOTHYROXINE 50 MCG TAB PO SCH (05:33)
[2019-11-06 06:05] LABS: Calcium 8.4 mg/dL (8.4-10.2)
[2019-11-06] MEDS: APIXABAN 5 MG TAB PO SCH ×2 (09:30→22:02)
[2019-11-06] MEDS: DOXAZOSIN 4 MG TAB PO SCH (09:30)
[2019-11-06] MEDS: allopurinoL 100 MG TAB PO SCH (09:30)
[2019-11-06] MEDS: CHOLECALCIFEROL (VIT D3) 1000 UNIT TAB PO SCH (09:30)
[2019-11-06] MEDS: FERROUS SULFATE 325 MG TAB PO SCH ×2 (09:30→22:02)
[2019-11-06] MEDS: amLODIPine 10 MG TAB PO SCH (09:31)
[2019-11-06] MEDS: carvediloL 25 MG TAB PO SCH ×2 (09:31→22:03)
[2019-11-06] MEDS ORDERED: DEXTROSE 50% IN WATER (25GM) 50 ML VIAL IV ONE (10:07)
[2019-11-06] MEDS ORDERED: SODIUM BICARB 8.4% 50 MEQ/50 ML SYRINGE IV ONE (10:07)
[2019-11-06] MEDS ORDERED: INSULIN REGULAR, HUMAN 100 UNITS/1 ML IV ONE (10:07)
--- NOTE | 2019-11-06 10:09 | Progress Note ---
Assessment and Plan 1. Chronic combined systolic and diastolic heart failure 2. Dilated nonischemic cardiomyopathy 3. Status post mitral and tricuspid valve repair. 4. Presence of permanent pacemaker battery approaching HERNAN 5. Paroxysmal atrial fibrillation 6. Essential hypertension 7. Chronic kidney disease stage III 8. Chronic atrial fibrillation with a controlled ventricular response 9. Nonsustained ventricular tachycardia Plan. Patient is currently hemodynamically stable we'll continue present medication and management. Family is concerned about battery of pacemaker. They would like the battery changed on this admission Subjective Date of service: 11/06/19 Principal diagnosis: Acute CHF exacerbation; Acute Hypoxemic Resp Failure Interval history: No cardiac symptoms Objective Vital Signs Temp Pulse Pulse Resp BP BP Pulse Ox 11/06/19 09:31 72 137/68 11/06/19 09:30 72 137/68 11/06/19 08:25 98.5 F 72 18 137/68 99 11/06/19 05:06 98.3 F 53 L 22 136/79 97 11/05/19 23:35 98.9 F 70 18 130/76 99 11/05/19 22:51 98 11/05/19 22:10 73 118/74 11/05/19 22:00 71 11/05/19 20:46 70 20 100 11/05/19 19:40 20 11/05/19 19:29 98.2 F 68 20 118/74 97 11/05/19 17:09 72 141/78 97 11/05/19 12:09 98.2 F 66 18 120/70 97 11/05/19 10:47 74 106/62 11/05/19 10:46 74 106/62 11/05/19 10:43 74 106/62 - Physical Examination General: No Apparent Distress HEENT: Positive: PERRL Neck: Positive: trachea midline. Negative: JVD/HJR Cardiac: Positive: Regular Rate, S1/S2, PMI, Dilated, Laterally Displaced. Negative: S3, S4 Lungs: Positive: clear to auscultation, No Wheeze, Rales, Rhonchi. Negative: Rales, Wheezes Neuro: Positive: Grossly Intact Abdomen: Positive: Unremarkable, Soft, Active Bowel Sounds Extremities: Absent: edema - Labs and Meds Comprehensive Metabolic Panel 11/06/19 Range/Units 05:14 Sodium 140 (137-145) mmol/L Potassium 5.2 H (3.6-5.0) mmol/L Chloride 108.6 H (98-107) mmol/L Carbon Dioxide 20 L (22-30) mmol/L BUN 52 H (9-20) mg/dL Creatinine 2.8 H (0.8-1.5) mg/dL Glucose 97 (75-100) mg/dL Calcium 8.4 (8.4-10.2) mg/dL - Allied health notes Allied health notes reviewed: nursing
[2019-11-06] MEDS ORDERED: DEXTROSE 50% IN WATER (25GM) 50 ML SYRINGE IV ONE (11:00)
--- NOTE | 2019-11-06 11:23 | Progress Note ---
Assessment and Plan Acute Hypoxic Respiratory Failure Hyperkalemia LIANA-probably 2/2 vasomotor nephropathy, overdiuresis Acute CHF exacerbation (EF 30%) CAD CKD HTN Anemia - wean supplemental oxygen for O2 sat's > 90% - continue bronchodilators prn -Increase activity -Avoid nephrotoxins, adjust all medications for GFR/CrCL - continue anticoagulation for A-fib -Medical management of hyperkalemia -Continue telemetry monitoring while treating hyperkalemia - PT/OT as tolerated - GI & VTE prophylaxis - Flu & pneumovax addressed per protocol - continue other care per attending / other consultants -Discharge planning per primary service Subjective Date of service: 11/06/19 Principal diagnosis: Acute CHF exacerbation; Acute Hypoxemic Resp Failure Interval history: Patient is seen today for: Acute CHF exacerbation; Acute Hypoxemic Resp Failure Seen and examined at bedside; 24hour events reviewed; nursing and respiratory care staff consulted; no adverse overnight events reported to me; resting peacefully in bed; feels better; remains on supplemental oxygen ; denies acute chest pains or palpitations, feels much better Objective Vital Signs - 12hr 11/05/19 11/06/19 11/06/19 23:35 05:06 08:25 Temperature 98.9 F 98.3 F 98.5 F Pulse Rate 70 53 L 72 Respiratory 18 22 18 Rate Blood Pressure 130/76 136/79 137/68 O2 Sat by Pulse 99 97 99 Oximetry 11/06/19 11/06/19 09:30 09:31 Temperature Pulse Rate 72 72 Respiratory Rate Blood Pressure 137/68 137/68 O2 Sat by Pulse Oximetry Constitutional: no acute distress, other (elderly looking AAF, normocephalic with normal resp effort at rest) Eyes: non-icteric ENT: oropharynx moist Neck: supple, no lymphadenopathy, no JVD Effort: normal, mildly labored Ascultation: Bilateral: rhonchi (bilaterally, clears on coughing) Percussion: Bilateral: not dull Cardiovascular: regular rate and rhythm, other (S1,S2) Gastrointestinal: normoactive bowel sounds, soft, non-tender, non-distended Integumentary: normal Extremities: no cyanosis, no edema, pulses normal, no ischemia or petechiae Neurologic: normal mental status, non-focal exam (grossly), pupils equal and round, CN II-XII normal, motor strength normal and Psychiatric: mood appropriate, affect normal CBC and BMP: 11/05/19 05:14 11/07/19 05:56 ABG, PT/INR, D-dimer: PT/INR, D-dimer PT 15.0 Sec. (12.2-14.9) H 11/03/19 04:45 INR 1.19 (0.87-1.13) H 11/03/19 04:45 Abnormal lab findings: Abnormal Labs 11/03/19 11/03/19 11/03/19 04:45 04:45 04:45 WBC 4.4 L RBC 3.25 L Hgb 9.5 L Hct 29.6 L RDW 17.8 H Monocytes % (Manual) 10.0 H Eosinophils % (Manual) 5.0 H Lymphocytes # (Manual) 0.7 L PT 15.0 H INR 1.19 H Sodium Potassium 5.5 H Chloride Carbon Dioxide 21 L BUN 63 H Creatinine 3.4 H Glucose POC Glucose Urine WBC (Auto) Urine Creatinine 11/03/19 11/03/19 11/04/19 14:55 20:07 04:00 WBC RBC Hgb Hct RDW Monocytes % (Manual) Eosinophils % (Manual) Lymphocytes # (Manual) PT INR Sodium Potassium 6.3 H* 5.3 H Chloride 111.0 H Carbon Dioxide 19 L BUN 62 H 59 H Creatinine 3.1 H 3.0 H Glucose 117 H 40 L POC Glucose Urine WBC (Auto) 7.0 H Urine Creatinine 11/04/19 11/04/19 11/04/19 04:00 07:13 16:09 WBC RBC Hgb Hct RDW Monocytes % (Manual) Eosinophils % (Manual) Lymphocytes # (Manual) PT INR Sodium 135 L Potassium 5.5 H 5.7 H Chloride Carbon Dioxide 20 L BUN 64 H Creatinine 2.6 H Glucose 73 L POC Glucose Urine WBC (Auto) Urine Creatinine 122.4 H 11/04/19 11/05/19 11/05/19 19:02 05:14 05:14 WBC 3.9 L RBC 3.11 L Hgb 9.2 L Hct 28.6 L RDW 17.6 H Monocytes % (Manual) 14.0 H Eosinophils % (Manual) Lymphocytes # (Manual) 0.9 L PT INR Sodium Potassium 5.6 H Chloride 107.7 H Carbon Dioxide 21 L BUN 59 H Creatinine 3.1 H Glucose POC Glucose 108 H Urine WBC (Auto) Urine Creatinine 11/06/19 05:14 WBC RBC Hgb Hct RDW Monocytes % (Manual) Eosinophils % (Manual) Lymphocytes # (Manual) PT INR Sodium Potassium 5.2 H Chloride 108.6 H Carbon Dioxide 20 L BUN 52 H Creatinine 2.8 H Glucose POC Glucose Urine WBC (Auto) Urine Creatinine Chest x-ray: image reviewed Allied health notes reviewed: nursing
--- NOTE | 2019-11-06 13:32 | Progress Note ---
Assessment and Plan / Hyperkalemia - trended down to 5.6 Was upto 6.3 s/p kayexalate, insulin/d50, calcium gluconate, sodium bicarbonate - nephrology consulted will cont to monitor K level and will treat again today follow BMp tomorrow / CHF (congestive heart failure)rEF 30% appears compensated now, consulted cardiology - will follow recommendation /Atrial fib, on eliquis, rate controlled / Urinary retention Patient has been placed on a Granados catheter will monitor input and output. / CAD (coronary artery disease) Stable, cont medical mx /CKD (chronic kidney disease) monitor renal function, consult nephrology / HTN (hypertension) Blood pressure stable and will continue routine home medications. will hold ACEI for now /Leukopenia, cont to monitor /Anemia of CD, monitor h/h /Dvt px, heparin Disposition: when k level normalizes Brief History: This is a 74-year old male with h/o history of paroxysmal atrial fibrillation, on low dose Eliquis due to renal failure, history of mitral valve repair and tricuspid valve repair in 2013, sick sinus syndrome and has a pacemaker implant who transferred from [facility] for further management of CHF exacerbation, EF 30% by echo 10/24/19. Physical exam: General appearance: Present: no acute distress, well-nourished - EENT Eyes: PERRL, EOM intact ENT: hearing intact, clear oral mucosa Ears: bilateral: normal - Neck Neck: supple, normal ROM - Respiratory Respiratory effort: normal Respiratory: bilateral: CTA - Cardiovascular Rhythm: regular Heart Sounds: Present: S1 & S2. Absent: gallop, rub Extremities: pulses intact, No edema, normal color, Full ROM - Gastrointestinal General gastrointestinal: Present: soft, non-tender, non-distended, normal bowel sounds - Integumentary Integumentary: clear, warm, dry - Musculoskeletal Musculoskeletal: 1, strength equal bilaterally - Neurologic Neurologic: moves all extremities - Psychiatric Psychiatric: memory intact, appropriate mood/affect, intact judgment & insight Subjective Date of service: 11/06/19 Principal diagnosis: Acute CHF exacerbation; Acute Hypoxemic Resp Failure Interval history: Patient seen and examined denies chest pain, breathing improved K level still 5.2 today Objective - Constitutional Vitals: Vital Signs - 12hr 11/06/19 11/06/19 11/06/19 05:06 08:25 09:30 Temperature 98.3 F 98.5 F Pulse Rate 53 L 72 72 Respiratory 22 18 Rate Blood Pressure 136/79 137/68 137/68 O2 Sat by Pulse 97 99 Oximetry 11/06/19 11/06/19 11/06/19 09:31 12:15 12:51 Temperature Pulse Rate 72 66 Respiratory 20 Rate Blood Pressure 137/68 118/72 O2 Sat by Pulse 100 Oximetry - Labs CBC & Chem 7: 11/05/19 05:14 11/07/19 05:56 Labs: Abnormal lab results 11/06/19 Range/Units 05:14 Potassium 5.2 H (3.6-5.0) mmol/L Chloride 108.6 H (98-107) mmol/L Carbon Dioxide 20 L (22-30) mmol/L BUN 52 H (9-20) mg/dL Creatinine 2.8 H (0.8-1.5) mg/dL
[2019-11-06] MEDS ORDERED: SODIUM POLYSTYRENE 15 GM/60 ML ORAL LIQD PO ONE (13:33)
--- NOTE | 2019-11-06 14:18 | Progress Note ---
Assessment and Plan 1. Acute kidney injury vs CKD stage 4: Likely CKD stage 4 in the setting of ischemic nephropathy. Renal US negative for hydronephrosis. Renal function is mostly stable. Monitor renal function. Renal prognosis is guarded. Avoid nephrotoxic agents. Meds dosage based on GFR. 2. FEN: Metabolic acidosis, monitor. Hyperkalemia, improving. Monitor lytes. 3. Acute decompensated CHF. 4. Paroxysmal A.fib. 5. Urinary retention: H/o BPH. Durham catheter. 6. Hypertension: Monitor BP. 7. Normochromic anemia: POA. Examination: General appearance: well-developed, well-nourished, appears stated age, not in distress HEENT: ATNC, AJIT, hearing intact, vision intact Neck: neck supple, trachea midline Respiratory: Clear to Ascultation Heart: normal heart rate, S1S2, no murmurs Gastrointestinal: normoactive bowel sounds, not tender, not distended Integumentary: no rash, warm and dry Neurologic: no focal deficit, no asterixis, confused, disoriented : durham catheter Ext: no edema Subjective Date of service: 11/06/19 Principal diagnosis: Acute CHF exacerbation; Acute Hypoxemic Resp Failure Interval history: Patient was seen and examined at the bedside. Doing ok. Objective - Vital Signs Vital signs: Vital Signs - 12hr 11/06/19 11/06/19 11/06/19 05:06 08:25 09:30 Temperature 98.3 F 98.5 F Pulse Rate 53 L 72 72 Respiratory 22 18 Rate Blood Pressure 136/79 137/68 137/68 O2 Sat by Pulse 97 99 Oximetry 11/06/19 11/06/19 11/06/19 09:31 12:15 12:51 Temperature Pulse Rate 72 66 Respiratory 20 Rate Blood Pressure 137/68 118/72 O2 Sat by Pulse 100 Oximetry - Lab 11/05/19 05:14 11/06/19 13:59 Most recent lab results Calcium 8.4 mg/dL (8.4-10.2) 11/06/19 05:14 Magnesium 2.20 mg/dL (1.7-2.3) 11/05/19 05:14 Urine Creatinine 122.4 mg/dL (0.1-20.0) H 11/04/19 04:00 Urine Sodium 41 mmol/L 11/04/19 04:00 Medications & Allergies - Medications Allergies/Adverse Reactions: Allergies No Known Allergies Allergy (Verified 11/02/19 19:03) Home Medications: Home Medications Medication Instructions Recorded Confirmed Last Taken Type Allopurinol [Zyloprim] 200 mg PO DAILY 11/02/19 11/03/19 11/02/19 History amLODIPine 10 mg PO DAILY 11/02/19 11/03/19 11/02/19 History Apixaban [Eliquis] 2.5 mg PO BID 11/03/19 11/03/19 11/02/19 History AtorvaSTATin 80 mg PO DAILY 11/03/19 11/03/19 11/02/19 History Cholecalciferol (Vitamin D3) 1,000 units PO DAILY 11/03/19 11/03/19 11/02/19 History Doxazosin [Cardura] 6 mg PO DAILY 11/03/19 11/03/19 10/31/19 History Ferrous Sulfate 325 mg PO BID 11/03/19 11/03/19 11/02/19 History Levothyroxine [Synthroid] 50 mcg PO DAILY 11/03/19 11/03/19 11/02/19 History Lisinopril [Zestril TAB] 40 mg PO DAILY 11/03/19 11/03/19 08/29/19 History Tolterodine (Nf) [Detrol LA] 4 mg PO DAILY 11/03/19 11/03/19 Unknown History carvediloL [Coreg] 25 mg PO BID 11/03/19 11/03/19 11/02/19 History Active Medications: Generic Name Dose Route Start Last Admin Trade Name [place] PRN Reason Stop Dose Admin Acetaminophen 650 mg 11/02/19 23:19 Tylenol PO Q6H PRN Pain MILD(1-3)/Fever >100.5/HOBBS Allopurinol 200 mg 11/04/19 10:00 11/06/19 09:30 Zyloprim PO 200 mg DAILY MARIA ELENA Administration Amlodipine Besylate 10 mg 11/03/19 10:00 11/06/19 09:31 Amlodipine PO 10 mg DAILY MARIA ELENA Administration Apixaban 2.5 mg 11/03/19 10:00 11/06/19 09:30 Eliquis PO 2.5 mg BID MARIA ELENA Administration Protocol Atorvastatin Calcium 80 mg 11/04/19 22:00 11/05/19 22:10 Lipitor PO 80 mg QHS MARIA ELENA Administration Carvedilol 25 mg 11/03/19 10:00 11/06/19 09:31 Coreg PO 25 mg BID MARIA ELENA Administration Cholecalciferol 1,000 unit 11/04/19 11:00 11/06/19 09:30 Vitamin D3 PO 1,000 unit DAILY MARIA ELENA Administration Doxazosin Mesylate 6 mg 11/03/19 10:00 11/06/19 09:30 Cardura PO 6 mg DAILY MARIA ELENA Administration Ferrous Sulfate 325 mg 11/04/19 11:00 11/06/19 09:30 Feosol PO 325 mg BID MARIA ELENA Administration Levothyroxine Sodium 50 mcg 11/03/19 07:00 11/06/19 05:33 Synthroid PO 50 mcg DAILY@0600 MARIA ELENA Administration Morphine Sulfate 2 mg 11/02/19 23:19 Morphine IV Q4H PRN Pain, Moderate (4-6) Ondansetron HCl 4 mg 11/02/19 23:19 Zofran IV Q8H PRN Nausea And Vomiting Sodium Chloride 10 ml 11/03/19 10:00 11/06/19 09:32 Sodium Chloride Flush Syringe 10 Ml IV 10 ml BID MARIA ELENA Administration Sodium Chloride 10 ml 11/02/19 23:19 11/06/19 05:36 Sodium Chloride Flush Syringe 10 Ml IV 10 ml PRN PRN Administration LINE FLUSH
[2019-11-07] MEDS: LEVOTHYROXINE 50 MCG TAB PO SCH (05:16)
[2019-11-07 08:17] LABS: Calcium 8.3 mg/dL (8.4-10.2)
[2019-11-07 08:45] VITALS: BP 127/76
[2019-11-07] MEDS: CHOLECALCIFEROL (VIT D3) 1000 UNIT TAB PO SCH (10:01)
[2019-11-07] MEDS: DOXAZOSIN 4 MG TAB PO SCH (10:02)
[2019-11-07] MEDS: FERROUS SULFATE 325 MG TAB PO SCH (10:02)
[2019-11-07] MEDS: carvediloL 25 MG TAB PO SCH (10:03)
[2019-11-07] MEDS: APIXABAN 5 MG TAB PO SCH (10:04)
[2019-11-07] MEDS: allopurinoL 100 MG TAB PO SCH (10:04)
[2019-11-07] MEDS: amLODIPine 10 MG TAB PO SCH (10:05)
--- NOTE | 2019-11-07 10:46 | Progress Note ---
Assessment and Plan 1. Chronic combined systolic and diastolic heart failure 2. Dilated nonischemic cardiomyopathy 3. Status post mitral and tricuspid valve repair. 4. Presence of permanent pacemaker battery approaching HERNAN 5. Paroxysmal atrial fibrillation 6. Essential hypertension 7. Chronic kidney disease stage III 8. Chronic atrial fibrillation with a controlled ventricular response 9. Nonsustained ventricular tachycardia Plan. Patient is currently hemodynamically stable we'll continue present medication and management. Family is concerned about battery of pacemaker. They would like the battery changed on this admission if possible. If he is to go home may follow up as an outpatient with his [employer]. Subjective Date of service: 11/07/19 Principal diagnosis: Acute CHF exacerbation; Acute Hypoxemic Resp Failure Interval history: No cardiac symptoms Feels fine Objective Vital Signs Temp Pulse Resp BP BP Pulse Ox 11/07/19 10:05 82 11/07/19 10:03 83 11/07/19 10:02 76 11/07/19 09:08 100 11/07/19 08:13 98.4 F 69 18 127/76 100 11/07/19 05:26 97.9 F 11/07/19 05:23 50 L 20 132/84 100 11/06/19 23:33 98.4 F 11/06/19 23:32 70 20 110/68 100 11/06/19 22:00 100 11/06/19 20:37 97.9 F 11/06/19 20:36 66 20 110/71 98 11/06/19 17:41 70 18 130/75 95 11/06/19 12:51 20 11/06/19 12:15 66 118/72 100 - Physical Examination General: No Apparent Distress HEENT: Positive: PERRL Neck: Positive: trachea midline. Negative: JVD/HJR Cardiac: Positive: Regular Rate, S1/S2, PMI, Dilated, Laterally Displaced. Negative: S3 Lungs: Positive: clear to auscultation, No Wheeze, Rales, Rhonchi Neuro: Positive: Grossly Intact, No Lateralizing Findings Abdomen: Positive: Unremarkable, Soft, Active Bowel Sounds Extremities: Absent: edema - Labs and Meds Comprehensive Metabolic Panel 11/06/19 11/07/19 Range/Units 13:59 05:56 Sodium 138 (137-145) mmol/L Potassium 4.6 4.4 (3.6-5.0) mmol/L Chloride 104.8 (98-107) mmol/L Carbon Dioxide 19 L (22-30) mmol/L BUN 48 H (9-20) mg/dL Creatinine 2.4 H (0.8-1.5) mg/dL Glucose 90 (75-100) mg/dL Calcium 8.3 L (8.4-10.2) mg/dL - Allied health notes Allied health notes reviewed: nursing
--- NOTE | 2019-11-07 12:13 | Progress Note ---
Assessment and Plan 1. Acute kidney injury vs CKD stage 4: Likely CKD stage 4 in the setting of ischemic nephropathy. Renal US negative for hydronephrosis. Renal function is improving. Monitor renal function. Renal prognosis is guarded. Avoid nephrotoxic agents. Meds dosage based on GFR. 2. FEN: Metabolic acidosis, monitor. Hyperkalemia, improved. Monitor lytes. 3. Acute decompensated CHF. 4. Paroxysmal A.fib. 5. Urinary retention: H/o BPH. Granados catheter. 6. Hypertension: Monitor BP. 7. Normochromic anemia: POA. Subjective Date of service: 11/07/19 Principal diagnosis: Acute CHF exacerbation; Acute Hypoxemic Resp Failure Interval history: Patient was not examined today. However the current and previous medical records are reviewed in detail as are laboratory and imaging data reviewed when appropriate. Medications being given are also reviewed. In addition the case has been discussed with the attending hospitalist when needed.Newrenalrecommendations as above. Objective - Vital Signs Vital signs: Vital Signs - 12hr 11/07/19 11/07/19 11/07/19 05:23 05:26 08:13 Temperature 97.9 F 98.4 F Pulse Rate 50 L 69 Respiratory 20 18 Rate Blood Pressure 132/84 127/76 O2 Sat by Pulse 100 100 Oximetry 11/07/19 11/07/19 11/07/19 09:08 10:02 10:03 Temperature Pulse Rate 76 83 Respiratory Rate Blood Pressure O2 Sat by Pulse 100 Oximetry 11/07/19 10:05 Temperature Pulse Rate 82 Respiratory Rate Blood Pressure O2 Sat by Pulse Oximetry - Lab 11/05/19 05:14 11/07/19 05:56 Most recent lab results Calcium 8.3 mg/dL (8.4-10.2) L 11/07/19 05:56 Magnesium 2.20 mg/dL (1.7-2.3) 11/05/19 05:14 Urine Creatinine 122.4 mg/dL (0.1-20.0) H 11/04/19 04:00 Urine Sodium 41 mmol/L 11/04/19 04:00 Medications & Allergies - Medications Allergies/Adverse Reactions: Allergies No Known Allergies Allergy (Verified 11/02/19 19:03) Home Medications: Home Medications Medication Instructions Recorded Confirmed Last Taken Type Allopurinol [Zyloprim] 200 mg PO DAILY 11/02/19 11/03/19 11/02/19 History amLODIPine 10 mg PO DAILY 11/02/19 11/03/19 11/02/19 History Apixaban [Eliquis] 2.5 mg PO BID 11/03/19 11/03/19 11/02/19 History AtorvaSTATin 80 mg PO DAILY 11/03/19 11/03/19 11/02/19 History Cholecalciferol (Vitamin D3) 1,000 units PO DAILY 11/03/19 11/03/19 11/02/19 History Doxazosin [Cardura] 6 mg PO DAILY 11/03/19 11/03/19 10/31/19 History Ferrous Sulfate 325 mg PO BID 11/03/19 11/03/19 11/02/19 History Levothyroxine [Synthroid] 50 mcg PO DAILY 11/03/19 11/03/19 11/02/19 History Lisinopril [Zestril TAB] 40 mg PO DAILY 11/03/19 11/03/19 08/29/19 History Tolterodine (Nf) [Detrol LA] 4 mg PO DAILY 11/03/19 11/03/19 Unknown History carvediloL [Coreg] 25 mg PO BID 11/03/19 11/03/19 11/02/19 History Active Medications: Generic Name Dose Route Start Last Admin Trade Name Freq PRN Reason Stop Dose Admin Acetaminophen 650 mg 11/02/19 23:19 Tylenol PO Q6H PRN Pain MILD(1-3)/Fever >100.5/HOBBS Allopurinol 200 mg 11/04/19 10:00 11/07/19 10:04 Zyloprim PO 200 mg DAILY MARIA ELENA Administration Amlodipine Besylate 10 mg 11/03/19 10:00 11/07/19 10:05 Amlodipine PO 10 mg DAILY MARIA ELENA Administration Apixaban 2.5 mg 11/03/19 10:00 11/07/19 10:04 Eliquis PO 2.5 mg BID MARIA ELENA Administration Protocol Atorvastatin Calcium 80 mg 11/04/19 22:00 11/06/19 22:03 Lipitor PO 80 mg QHS MARIA ELENA Administration Carvedilol 25 mg 11/03/19 10:00 11/07/19 10:03 Coreg PO 25 mg BID MARIA ELENA Administration Cholecalciferol 1,000 unit 11/04/19 11:00 11/07/19 10:01 Vitamin D3 PO 1,000 unit DAILY MARIA ELENA Administration Doxazosin Mesylate 6 mg 11/03/19 10:00 11/07/19 10:02 Cardura PO 6 mg DAILY MARIA ELENA Administration Ferrous Sulfate 325 mg 11/04/19 11:00 11/07/19 10:02 Feosol PO 325 mg BID MARIA ELENA Administration Levothyroxine Sodium 50 mcg 11/03/19 07:00 11/07/19 05:16 Synthroid PO 50 mcg DAILY@0600 MARIA ELENA Administration Morphine Sulfate 2 mg 11/02/19 23:19 Morphine IV Q4H PRN Pain, Moderate (4-6) Ondansetron HCl 4 mg 11/02/19 23:19 Zofran IV Q8H PRN Nausea And Vomiting Sodium Chloride 10 ml 11/03/19 10:00 11/07/19 10:06 Sodium Chloride Flush Syringe 10 Ml IV 10 ml BID MARIA ELENA Administration Sodium Chloride 10 ml 11/02/19 23:19 11/06/19 05:36 Sodium Chloride Flush Syringe 10 Ml IV 10 ml PRN PRN Administration LINE FLUSH
--- NOTE | 2019-11-07 13:11 | Progress Note ---
Assessment and Plan Acute Hypoxic Respiratory Failure Hyperkalemia LIANA-probably 2/2 vasomotor nephropathy, overdiuresis Acute CHF exacerbation (EF 30%) CAD CKD HTN Anemia - off oxygen with acceptable O2 sats - continue bronchodilators prn -Increase activity -Avoid nephrotoxins, adjust all medications for GFR/CrCL - continue anticoagulation for A-fib - Flu & pneumovax addressed per protocol Discussed heart failure measures and life style modifications with the patient and his at the bedside. Stable from pulmonary standpoint for discharge, discussed with Dr. Lawson Subjective Date of service: 11/07/19 Principal diagnosis: Acute CHF exacerbation; Acute Hypoxemic Resp Failure Interval history: Patient is seen today for: Acute CHF exacerbation; Acute Hypoxemic Resp Failure Seen and examined at bedside; 24hour events reviewed; nursing and respiratory care staff consulted; no adverse overnight events reported to me; resting peacefully in bed; feels better; off supplemental oxygen ; denies acute chest pains or palpitations; is visiting Objective Vital Signs - 12hr 11/07/19 11/07/19 11/07/19 05:23 05:26 08:13 Temperature 97.9 F 98.4 F Pulse Rate 50 L 69 Respiratory 20 18 Rate Blood Pressure 132/84 127/76 O2 Sat by Pulse 100 100 Oximetry 11/07/19 11/07/19 11/07/19 09:08 10:02 10:03 Temperature Pulse Rate 76 83 Respiratory Rate Blood Pressure O2 Sat by Pulse 100 Oximetry 11/07/19 10:05 Temperature Pulse Rate 82 Respiratory Rate Blood Pressure O2 Sat by Pulse Oximetry Constitutional: no acute distress, alert Eyes: non-icteric ENT: oropharynx moist Neck: supple, no lymphadenopathy, no JVD Effort: normal Percussion: Bilateral: not dull Cardiovascular: irregular rhythm, other (S1,S2) Gastrointestinal: normoactive bowel sounds, soft, non-tender, non-distended Integumentary: normal Extremities: no cyanosis, no edema, pulses normal, no ischemia or petechiae Neurologic: normal mental status, non-focal exam (grossly), pupils equal and round, CN II-XII normal, motor strength normal and Psychiatric: mood appropriate, affect normal CBC and BMP: 11/05/19 05:14 11/07/19 05:56 ABG, PT/INR, D-dimer: PT/INR, D-dimer PT 15.0 Sec. (12.2-14.9) H 11/03/19 04:45 INR 1.19 (0.87-1.13) H 11/03/19 04:45 Abnormal lab findings: Abnormal Labs 11/03/19 11/03/19 11/03/19 04:45 04:45 04:45 WBC 4.4 L RBC 3.25 L Hgb 9.5 L Hct 29.6 L RDW 17.8 H Monocytes % (Manual) 10.0 H Eosinophils % (Manual) 5.0 H Lymphocytes # (Manual) 0.7 L PT 15.0 H INR 1.19 H Sodium Potassium 5.5 H Chloride Carbon Dioxide 21 L BUN 63 H Creatinine 3.4 H Glucose POC Glucose Calcium Urine WBC (Auto) Urine Creatinine 11/03/19 11/03/19 11/04/19 14:55 20:07 04:00 WBC RBC Hgb Hct RDW Monocytes % (Manual) Eosinophils % (Manual) Lymphocytes # (Manual) PT INR Sodium Potassium 6.3 H* 5.3 H Chloride 111.0 H Carbon Dioxide 19 L BUN 62 H 59 H Creatinine 3.1 H 3.0 H Glucose 117 H 40 L POC Glucose Calcium Urine WBC (Auto) 7.0 H Urine Creatinine 11/04/19 11/04/19 11/04/19 04:00 07:13 16:09 WBC RBC Hgb Hct RDW Monocytes % (Manual) Eosinophils % (Manual) Lymphocytes # (Manual) PT INR Sodium 135 L Potassium 5.5 H 5.7 H Chloride Carbon Dioxide 20 L BUN 64 H Creatinine 2.6 H Glucose 73 L POC Glucose Calcium Urine WBC (Auto) Urine Creatinine 122.4 H 11/04/19 11/05/19 11/05/19 19:02 05:14 05:14 WBC 3.9 L RBC 3.11 L Hgb 9.2 L Hct 28.6 L RDW 17.6 H Monocytes % (Manual) 14.0 H Eosinophils % (Manual) Lymphocytes # (Manual) 0.9 L PT INR Sodium Potassium 5.6 H Chloride 107.7 H Carbon Dioxide 21 L BUN 59 H Creatinine 3.1 H Glucose POC Glucose 108 H Calcium Urine WBC (Auto) Urine Creatinine 11/06/19 11/07/19 05:14 05:56 WBC RBC Hgb Hct RDW Monocytes % (Manual) Eosinophils % (Manual) Lymphocytes # (Manual) PT INR Sodium Potassium 5.2 H Chloride 108.6 H Carbon Dioxide 20 L 19 L BUN 52 H 48 H Creatinine 2.8 H 2.4 H Glucose POC Glucose Calcium 8.3 L Urine WBC (Auto) Urine Creatinine Allied health notes reviewed: nursing
--- NOTE | 2019-11-07 14:54 | Discharge Summary ---
Providers - Providers Date of Admission: 11/02/19 23:15 Date of discharge: 11/07/19 Attending physician: BASIA STATON 11/02/19 23:20 Consult to Dietitian/Nutrition [CONS] Routine Physician Instructions: Reason For Exam: Reason for Consult: Diet education 11/02/19 23:24 Consult to Physician [CONS] Routine Comment: Consulting Provider: SYLWIA BRAND Physician Instructions: Reason For Exam: chf exacerbation, h/o cad 11/03/19 07:38 Consult to Physician [CONS] Routine Comment: Consulting Provider: BRENDA ERWIN Physician Instructions: Reason For Exam: critical care management 11/03/19 10:11 Consult to Physician [CONS] Routine Comment: Consulting Provider: SANDRA ALCANTARA Physician Instructions: Reason For Exam: harish ON ckd Primary care physician: [employer] COORDINATOR Hospitalization Hospital course: This is a 74-year old male with h/o history of paroxysmal atrial fibrillation, on low dose Eliquis due to renal failure, history of mitral valve repair and tricuspid valve repair in 2013, sick sinus syndrome and has a pacemaker implant who transferred from [facility] for further management of CHF exacerbation, EF 30% by echo 10/24/19. Discharge diagnosis: / Hyperkalemia - Was upto 6.3 s/p multiple rounds of kayexalate, insulin/d50, calcium gluconate, sodium bicarbonate - nephrology consulted / CHF (congestive heart failure)rEF 30% appears compensated now, consulted cardiology - will follow recommendation /Atrial fib, on eliquis, rate controlled / Urinary retention Patient has been placed on a Granados catheter will monitor input and output. / CAD (coronary artery disease) Stable, cont medical mx /Harish on CKD stage 4 - likely vasomotor nephropathy from overdiuresis with iv diuretics during initial hospitalization at [facility] - Cr improved slowly to 2.4 - probably at his baseline / HTN (hypertension) Blood pressure stable and will continue routine home medications. will hold ACEI for now /Leukopenia, cont to monitor /Anemia of CD, monitor h/h /Dvt px, heparin Disposition: home with Physical exam: General appearance: Present: no acute distress, well-nourished - EENT Eyes: PERRL, EOM intact ENT: hearing intact, clear oral mucosa Ears: bilateral: normal - Neck Neck: supple, normal ROM - Respiratory Respiratory effort: normal Respiratory: bilateral: CTA - Cardiovascular Rhythm: regular Heart Sounds: Present: S1 & S2. Absent: gallop, rub Extremities: pulses intact, No edema, normal color, Full ROM - Gastrointestinal General gastrointestinal: Present: soft, non-tender, non-distended, normal bowel sounds - Integumentary Integumentary: clear, warm, dry - Musculoskeletal Musculoskeletal: 1, strength equal bilaterally - Neurologic Neurologic: moves all extremities - Psychiatric Psychiatric: memory intact, appropriate mood/affect, intact judgment & insight Disposition: [id number] HOME UNDER HOME HLTH Time spent for discharge: 34 minutes Core Measure Documentation - Palliative Care Palliative Care/ Comfort Measures: Not Applicable - Core Measures Any of the following diagnoses?: heart failure - Heart Failure Discharge Requirements GREY/ARB for LVSD if EF <40%: Not Applicable Reason for no GREY/ARB: Hyperkalemia Beta jenny at discharge: Yes Exam - Constitutional Vitals: Temp Pulse Resp BP Pulse Ox 98.4 F 82 18 127/76 100 11/07/19 08:13 11/07/19 10:05 11/07/19 08:13 11/07/19 08:13 11/07/19 09:08 Plan Activity: advance as tolerated Weight Bearing Status: Weight Bear as Tolerated Diet: low fat, low salt (low K diet) Special Instructions: restrict fluid intake to (1.2 L daily) Additional Instructions: f/u at [facility] for pacemaker batttery change Follow up with: PRIMARY CARE, [Primary Care Provider] - 7 Days
== END 2019-11-07 16:00 | disposition home health service (06) | DRG 291 ==
LOC: UNDOADMIN 18:18 → CC1 18:18 → 4A 11-03 12:44
PROVIDERS: ADMIT Internal Medicine; ATTEND Internal Medicine
PROC: 5A09357 Assistance with Respiratory Ventilation, Less than 24 Consecutive Hours, Continuous Positive Airway Pressure (ICD-10-PCS; principal; 2019-11-03)
DX: I13.0 Hypertensive heart and chronic kidney disease with heart failure and stage 1 through stage 4 chronic kidney disease, or unspecified chronic kidney disease (principal); N17.0 Acute kidney failure with tubular necrosis; I50.43 Acute on chronic combined systolic (congestive) and diastolic (congestive) heart failure; J96.01 Acute respiratory failure with hypoxia; I47.2 Ventricular tachycardia; E87.2 Acidosis; N18.4 Chronic kidney disease, stage 4 (severe); I48.0 Paroxysmal atrial fibrillation; I73.9 Peripheral vascular disease, unspecified; I25.10 Atherosclerotic heart disease of native coronary artery without angina pectoris; F17.200 Nicotine dependence, unspecified, uncomplicated; E89.0 Postprocedural hypothyroidism; E87.5 Hyperkalemia; N40.1 Benign prostatic hyperplasia with lower urinary tract symptoms; R33.8 Other retention of urine; D72.819 Decreased white blood cell count, unspecified; D63.8 Anemia in other chronic diseases classified elsewhere; Z96.649 Presence of unspecified artificial hip joint; Z96.659 Presence of unspecified artificial knee joint; I42.0 Dilated cardiomyopathy; Z90.49 Acquired absence of other specified parts of digestive tract; Z82.49 Family history of ischemic heart disease and other diseases of the circulatory system; Z79.899 Other long term (current) drug therapy
CPT/HCPCS: 36415; 76770; 80048; 80053; 81001; 82570; 82962; 83735; 84132; 84300; 84443; 85007; 85025; 85610; 85730; 89050; 93005; 93010; 94640; 94660; 94760; G0378; A9270-GY